=== PATIENT | female | born 1945 | race Caucasian/White ===

== ENCOUNTER → 2016-03-13 | Outpatient (CLI) | payer OTHER ==
--- NOTE | 2016-03-13 17:33 | US ---
Bilateral Duplex Carotid Sonography Clinical Indications: 70-year-old female who had a 20 minute episode of slurred speech and ataxia in early January. Rule out hemodynamically significant stenosis. ICD 10 Diagnostic Code: G45.9. Technique: The cervical portions of the carotid and vertebral arteries were imaged and interrogated by color and pulsed Doppler. Spectral analysis was performed. Cine clips are stored on PACS. COMPARISON STUDY: None. Findings: Right Carotid Artery: The common carotid artery, bifurcation, and the origin of the internal and ext ernal carotid artery are well-imaged. Doppler velocity estimates and color Doppler spectra are ronnell l, with no sonographic evidence of a flow-limiting stenosis. Minimal plaque is seen in the posterior carotid bulb. The peak systolic velocity in the right internal carotid artery is 89 cm/s, with a peak diastolic velocity of 33 cm/s. The ICA to CCA systolic and diastolic ratios are normal. Left Carotid Artery: The common carotid artery, bifurcation, and origin of the internal and external carotid artery are well-imaged. Minimal plaque is seen in the posterior carotid bulb. Doppler veloc ity estimates and color Doppler spectra are normal, with no sonographic evidence of a flow-limiting s tenosis. The peak systolic velocity in the left internal carotid artery is 78 cm/s, with a peak diast olic velocity of 27 cm/s. Vertebral Arteries: Antegrade flow is shown by pulsed Doppler of each vertebral artery. The peak sys tolic velocity in the right vertebral artery is 41 cm/s, with a peak diastolic velocity of 49 cm/s. Impression: 1. Minimal atherosclerotic features; however, there is is no sonographic evidence of a flow-limiting carotid stenosis. 2. Patent, antegrade vertebral arteries. Measurement of carotid stenosis is based on velocity parameters that correlate the residual internal carotid diameter with [place] Symptomatic Carotid Endarterectomy Trial (NASCET) based stenosis levels.
== END ==
LOC: FIMAGING 10:26
PROVIDERS: ATTEND Internal Medicine
DX: G45.9 Transient cerebral ischemic attack, unspecified (principal)

== ENCOUNTER 2016-05-07 16:13 | Inpatient (IN) | payer OTHER ==
--- NOTE | 2016-05-07 16:57 | EDPHY ---
H & P Time Seen by Provider: 05/07/16 16:41 HPI/ROS: Chief complaint. Chest pain HPI. 70-year-old female with 10 day history of gradually worsening shortness of breath. Recent travel to [facility] and when she got there she was walking on the beach just fine and then on the return she could walk up the airplane ramp and had use a wheelchair because of shortness of breath. She has heaviness in her chest without radiation. Bloating abdomen, puffy eyes. Her symptoms are not similar to her previous GA. 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 She is scheduled for an angiogram tomorrow. No fever, cough, unusual leg pain or swelling ROS Constitutional. no fever/chills, no weakness Eyes. no problems with vision ENT. no sore throat, no nasal drainage Cardiovascular. Chest pressure Respiratory. Exertional shortness of breath Abdominal. no abdominal pain, no nausea/vomiting, no diarrhea . no problems urinating MS. no calf pain/swelling, no neck/back pain, no joint pain Skin. no rash Lymph. no swollen glands Neuro. no headache, no dizziness, no difficulty walking or with speech Past Medical/Surgical History: Past medical history coronary artery disease and GA with stents, shortness of breath, back pain, TBI, dyslipidemia, L5-S1 laminectomy Social History: , nonsmoker, no alcohol Smoking Status: Former smoker Physical Exam: General Appearance: Alert well-developed female moderate distress vital signs are stable. Oxygen saturation 94% on room air Eyes: Pupils equal and round no pallor or injection. ENT, Mouth: Mucous membranes are moist. Respiratory: There are no retractions, lungs are clear to auscultation. Cardiovascular: Regular rate and rhythm. Gastrointestinal: Abdomen is soft and nontender, no masses, bowel sounds normal. Neurological: Awake and alert, sensory and motor exams grossly normal. Skin: Warm and dry, no rashes. Musculoskeletal: Neck is supple nontender. Extremities symmetrical, full range of motion. Psychiatric: Patient is oriented X 3, there is no agitation. Constitutional: Initial Vital Signs Temperature (C) 36.5 C 05/07/16 16:33 Heart Rate 69 05/07/16 16:33 Respiratory Rate 20 05/07/16 16:33 Blood Pressure 144/103 H 05/07/16 16:33 O2 Sat (%) 96 05/07/16 16:33 O2 Delivery Mode Room Air O2 (L/minute) 2 Allergies/Adverse Reactions: No Known Allergies Allergy (Verified 05/07/16 16:31) Home Medications: Medication Instructions Recorded Herbals/Supplements -Info Only 1 tab PO DAILY 09/03/12 LORazepam [Ativan (*)] 0.5 mg PO HS 09/03/12 PARoxetine HCL [Paxil 10mg (*)] 30 mg PO DAILY 09/03/12 Progesterone,Micronized 200 mg PO HS 09/03/12 [Progesterone] fentaNYL [Duragesic 75 MCG Patch 75 mcg TD Q48H 09/03/12 (*)] lamOTRIGine [Lamotrigine] 150 mg PO DAILY06 09/03/12 lamoTRIgine [LamICTAL 100 MG (*)] 100 mg PO DAILY18 09/03/12 DULoxetine [Cymbalta 30 MG (*)] 90 mg PO DAILY 10/11/15 Acetaminophen [Tylenol 325mg (*)] 650 mg PO Q4 PRN #0 tab 10/12/15 Clopidogrel Bisulfate [Plavix (*)] 75 mg PO DAILY #30 tab 10/12/15 Nitroglycerin [Nitrostat 0.4 mg 0.4 mg SL Q5M PRN #1 btl 10/12/15 (*)] Aspirin EC [Aspirin EC 81 mg (*)] 81 mg PO DAILY 05/07/16 Bupropion HCl [Bupropion HCl Sr] 150 mg PO DAILY 05/07/16 Dextroamphetamine Sulfate 10 mg PO DAILY 05/07/16 [Dextroamphetamine Sulfate ER] Levothyroxine Sodium [Synthroid] 88 mcg PO DAILY 05/07/16 MELOXICAM [Mobic] 15 mg PO DAILY PRN 05/07/16 Metoprolol Tartrate [Lopressor 25 25 mg PO BID 05/07/16 mg (*)] Oxybutynin Chloride [Oxybutynin 5 mg PO BID PRN 05/07/16 Chloride] Medical Decision Making - Diagnostics EKG Interpretation: EKG interpreted by me shows normal sinus rhythm with normal interval and axis. QRS is normal there is no significant ST elevation or depression, no arrhythmia. Rate 57 Imaging: Chest CT reviewed by me and then discussed with Dr. Ramos shows no evidence for pulmonary embolus. Bilateral pleural effusions an enlarged heart Procedures: IV normal saline, O2, monitor ED Course/Re-evaluation: Re-evaluation at 6:45 p.m.. Patient, her and I discussed imaging lab and EKG results. We discussed treatment plan and recommendation for admission especially as the patient is quite symptomatic at home and is scheduled for heart catheterization tomorrow morning I consulted and discussed the case with Dr. Eli, hospitalist who agrees to the admission I also consulted and discussed the case with , cardiology, who will convey the information of the patient's admission to Dr. Adkins Differential Diagnosis: Patient has had recent travel and shortness of breath since then. The concern was for pulmonary embolus or pneumonia. It appears that she has probable ischemic heart disease with congestive heart failure. Plan is admission and heart catheterization tomorrow - Data Points Laboratory Results: Laboratory Results 05/07/16 16:50 05/07/16 16:50 05/07/16 05/07/16 05/07/16 16:50 16:50 16:50 WBC 5.99 10^3/uL 10^3/uL (3.80-9.50) RBC 3.51 10^6/uL L 10^6/uL (4.18-5.33) Hgb 11.4 g/dL L g/dL (12.6-16.3) Hct 34.6 % L % (38.0-47.0) MCV 98.6 fL fL (81.5-99.8) MCH 32.5 pg pg (27.9-34.1) MCHC 32.9 g/dL g/dL (32.4-36.7) RDW 14.1 % % (11.5-15.2) Plt Count 326 10^3/uL 10^3/uL (150-400) MPV 9.1 fL fL (8.7-11.7) Neut % (Auto) 52.0 % % (39.3-74.2) Lymph % (Auto) 33.2 % % (15.0-45.0) [place] % (Auto) 10.2 % % (4.5-13.0) Eos % (Auto) 3.7 % % (0.6-7.6) Baso % (Auto) 0.7 % % (0.3-1.7) Nucleat RBC Rel Count 0.0 % % (0.0-0.2) Absolute Neuts (auto) 3.12 10^3/uL 10^3/uL (1.70-6.50) Absolute Lymphs (auto) 1.99 10^3/uL 10^3/uL (1.00-3.00) Absolute Monos (auto) 0.61 10^3/uL 10^3/uL (0.30-0.80) Absolute Eos (auto) 0.22 10^3/uL 10^3/uL (0.03-0.40) Absolute Basos (auto) 0.04 10^3/uL 10^3/uL (0.02-0.10) Absolute Nucleated RBC 0.00 10^3/uL 10^3/uL (0-0.01) Immature Gran % 0.2 % % (0.0-1.1) Immature Gran # 0.01 10^3/uL 10^3/uL (0.00-0.10) PT 14.3 SEC SEC (12.0-15.0) INR 1.12 (0.83-1.16) D-Dimer 0.55 ug/mLFEU H ug/mLFEU (0.00-0.50) Sodium 142 mEq/L mEq/L (134-144) Potassium 4.0 mEq/L mEq/L (3.5-5.2) Chloride 108 mEq/L mEq/L (97-110) Carbon Dioxide 25 mEq/l mEq/l (22-31) Anion Gap 9 mEq/L mEq/L (8-16) BUN 21 mg/dL mg/dL (7-23) Creatinine 1.0 mg/dL mg/dL (0.6-1.0) Estimated GFR 55 Glucose 75 mg/dL mg/dL (70-100) Calcium 9.6 mg/dL mg/dL (8.5-10.4) Troponin I < 0.012 ng/mL ng/mL (0-0.034) NT-Pro-B Natriuret Pep 1790 pg/mL H pg/mL (0-125) Departure - Departure Disposition: [facility] Inpatient Acute Clinical Impression: Dyspnea Qualifiers: Dyspnea type: dyspnea on exertion Qualified Code(s): R06.09 - Other forms of dyspnea Condition: Fair
[2016-05-07 17:14] LABS: % IMMATURE GRANULYOCYTES 0.2 % (0.0-1.1); ABSOLUTE IMMATURE GRANULOCYTES 0.01 10^3/uL (0.00-0.10); ADD DIFF? NO; ADD MORPH? NO; ADD SCAN? NO; ATYPICAL LYMPHOCYTE FLAG 10 (0-99); FRAGMENT RBC FLAG 0 (0-99); HEMATOCRIT 34.6 % (38.0-47.0); HEMOGLOBIN 11.4 g/dL (12.6-16.3); LEFT SHIFT FLG 0 (0-99); LIPEMIA HEMOLYSIS FLAG 80 (0-99); MEAN CELL HEMOGLOBIN 32.5 pg (27.9-34.1); MEAN CELL HEMOGLOBIN CONCENTR. 32.9 g/dL (32.4-36.7); MEAN CELL VOLUME 98.6 fL (81.5-99.8); MEAN PLATELET VOLUME 9.1 fL (8.7-11.7); PLATELET CLUMPS FLAG 10 (0-99); PLATELET COUNT 326 10^3/uL (150-400); RED BLOOD CELL COUNT 3.51 10^6/uL (4.18-5.33); RED CELL DISTRIBUTION WIDTH 14.1 % (11.5-15.2)
[2016-05-07 17:18] LABS: ANION GAP 9 mEq/L (8-16); CALCIUM 9.6 mg/dL (8.5-10.4); CARBON DIOXIDE 25 mEq/l (22-31); CHLORIDE 108 mEq/L (97-110); GLOMERULAR FILTRATION RATE 55; GLUCOSE 75 mg/dL (70-100); SODIUM 142 mEq/L (134-144)
--- NOTE | 2016-05-07 17:21 | CPEKG ---
Heart Rate: 57 RR Interval: 1053 P-R Interval: 164 QRSD Interval: 74 QT Interval: 468 QTC Interval: 456 P [place]: -11 QRS [place]: 46 T Wave [place]: 15 EKG Severity - NORMAL ECG - EKG Impression: SINUS RHYTHM Electronically Signed By: Marck Nelson 08-May-2016 00:02:07
[2016-05-07 17:31] LABS: TROPONIN I < 0.012 ng/mL (0-0.034)
[2016-05-07] MEDS ORDERED: IOPAMIDOL (ISOVUE 370) 100 ML BTL IV ONE (17:40)
[2016-05-07 18:23] LABS: INR 1.12 (0.83-1.16); PROTIME(PATIENT) 14.3 SEC (12.0-15.0)
[2016-05-07] MEDS ORDERED: ACETAMINOPHEN 325 MG TAB PO PRN (21:08)
[2016-05-07] MEDS ORDERED: ONDANSETRON DISINTEGRATING 4 MG TAB PO PRN (21:08)
[2016-05-07] MEDS ORDERED: ONDANSETRON 4 MG/2 ML VIAL IVP PRN (21:08)
[2016-05-07] MEDS ORDERED: NITROGLYCERIN 0.4 MG BTL SL PRN (21:10)
[2016-05-07] MEDS ORDERED: FUROSEMIDE 20 MG/2 ML VIAL IVP ONE (21:12)
[2016-05-07] MEDS ORDERED: METOPROLOL TARTRATE 25 MG TAB PO SCH (21:30)
--- NOTE | 2016-05-07 21:42 | GHP ---
[f rep st] HISTORY AND PHYSICAL DATE OF ADMISSION: 05/07/2016 CHIEF COMPLAINT: Dyspnea, concern for anginal equivalent. HISTORY OF PRESENT ILLNESS: Patient is a 70-year-old female, history of CAD status post 2 stents to the RCA in September 2015, hyperlipidemia, presenting with progressive dyspnea. She recently spent 2-1/2 weeks in the [facility]. She and her flew back today, but she was unable to walk off the plane and wired a wheelchair because she was so short of breath. She noted the shortness of breath started about a month ago, specifically with walking or if she talks a lot. On her vacation she felt fairly well, but as the week went on, she was not able to even walk on the beach due to shortness of breath. She reports heaviness in her chest that has been constant for the past 2 days without radiation, associated nausea, vomiting, or diaphoresis. Denies PND or pillow orthopnea. Reports facial and arm swelling, no lower extremity swelling. She has also been very fatigued over the past month. She denies overt chest pain that she has previously had. REVIEW OF SYSTEMS: I completed a 10-point review of systems, negative except as noted in HPI. PAST MEDICAL HISTORY: 1. CAD, 2 stents to RCA October 2015 . 2. Hyperlipidemia. 3. Depression. 4. TBI after falling down 18 steps. PAST SURGICAL HISTORY: Cardiac stents. SOCIAL HISTORY: Lives in [place] with her . No illicit's. Quit smoking 30 years ago. No alcohol. FAMILY HISTORY: Father with an MT at age 69 and 86. Mother with angina and esophageal cancer. ALLERGIES: No known drug allergies. MEDICATIONS: 1. Lamictal . 2. Fentanyl patch. 3. Progesterone. 4. Paroxetine 10 mg daily. 5. Nitroglycerin p.r.n. 6. Metoprolol 12.5 mg twice daily. 7. Synthroid 75 mcg daily. 8. Lorazepam q.h.s. 9. Adderall 5-10 mg daily. 10. Cymbalta 90 mg daily. 11. Plavix daily. 12. Aspirin 325 daily. 13. Tylenol p.r.n. PHYSICAL EXAM: VITAL SIGNS: Temperature 36.7, blood pressure 134/69, heart rate 50s, 60, respirations 20, 93% on room air. GENERAL: Patient is tearful in exam room due to being hospitalized. HEENT: PERRLA. Oropharynx clear. CV : Bradycardic regular rhythm. LUNGS: Decreased breath sounds at bilateral bases. ABDOMEN: Mildly distended, nontender, positive bowel sounds. : No CVA or suprapubic tenderness. MUSCULOSKELETAL: Moving all 4 extremities. NEURO: II through XII intact. PSYCH: Alert and oriented x3, tearful, appears mildly depressed. LABORATORY DATA: WBC 5.9, hemoglobin 11, hematocrit 34, platelets 326. D- dimer is 0.5. INR is 1.2. PT is 14. Sodium 142, potassium chloride 108, carbon dioxide 25, BUN 21, creatinine 1 (baseline 0.8), glucose 9.6, troponin less than 0.012. BNP is 1790. EKG personally reviewed by me, bradycardic, normal sinus rhythm. CTA negative for pulmonary embolism. Bilateral pleural effusions. ASSESSMENT AND PLAN: 1. Dyspnea: The patient was sent over from Dr. Arias office with concern of pulmonary embolism. She underwent CTA that was negative for clot, but it did show bilateral pleural effusions. Patient is with known coronary disease, so coronary ischemic cardiomyopathy. Check a TTE. Mild diuresis. Plan for a cardiac catheterization in the morning. 2. Coronary artery disease status post 2 stents to right carotid artery. Continue aspirin, statin, beta-pérez, and Plavix. 3. Hyperlipidemia. Continue statin. 4. Depression. Continue home medications. DIET: N.p.o. after midnight for procedure. DISPOSITION: Patient warrants admission to the PCU for telemetry. Plan for cardiac catheterization in the morning. /[id number]/MODL MTDD
[2016-05-07] MEDS ORDERED: OXYBUTYNIN CHLORIDE 5 MG TAB PO PRN (23:02)
[2016-05-07] MEDS ORDERED: lamoTRIgine 100 MG TAB PO SCH (23:30)
[2016-05-08] MEDS: LEVOTHYROXINE 88 MCG TAB PO SCH (07:14)
[2016-05-08] MEDS: lamoTRIgine 100 MG TAB PO SCH (07:18)
[2016-05-08] MEDS: METOPROLOL TARTRATE 25 MG TAB PO SCH ×2 (08:20→21:19)
[2016-05-08] MEDS: DULoxetine 30 MG CAP PO SCH (08:20)
[2016-05-08] MEDS: buPROPion SR 150 MG TAB PO SCH (08:21)
[2016-05-08] MEDS ORDERED: fentaNYL 75 MCG PATCH TD SCH (09:00)
[2016-05-08] MEDS ORDERED: FAMOTIDINE 20 MG TAB PO ONE (09:37)
[2016-05-08] MEDS ORDERED: diphenhydrAMINE 25 MG CAP PO ONE (09:37)
[2016-05-08] MEDS ORDERED: DIAZEPAM 5 MG TAB PO ONE (09:37)
[2016-05-08] MEDS ORDERED: NS 1,000 ML IV ONE (09:37)
[2016-05-08] MEDS ORDERED: ASPIRIN EC 325 MG TAB PO ONE (09:37)
[2016-05-08] MEDS: CLOPIDOGREL BISULFATE 75 MG TAB PO SCH (09:52)
[2016-05-08] MEDS: ASPIRIN EC 81 MG TAB PO SCH (09:56)
[2016-05-08] MEDS ORDERED: MIDAZOLAM 2 MG/2 ML VIAL ONE ×2 (12:17→12:28)
[2016-05-08] MEDS ORDERED: HEPARIN 10,000 UNIT/10 ML MDV ONE (12:28)
[2016-05-08] MEDS ORDERED: VERAPAMIL 5 MG/2 ML VIAL ONE (12:28)
[2016-05-08] MEDS ORDERED: LIDOCAINE 1% 30 ML SDV ONE (12:28)
[2016-05-08] MEDS ORDERED: fentaNYL 100 MCG/2 ML INJ ONE (12:28)
[2016-05-08] MEDS ORDERED: IOPAMIDOL (ISOVUE 370) 100 ML BTL IV ONE (12:29)
--- NOTE | 2016-05-08 13:23 | ECHO ---
[id number] + + [address] : : [place] [address] : : [phone] + + Adult Echocardiographic Report + + :Name: ANA CRISTINA HEATON JStudy Date: 05/08/2016 11:36 AM : : Hospital Admission Number: [id number] Loc ation: 220: :: 1945 Gender: Female Height: 67 in : :Age: 70 yrs Race: WH Weight: 189 lb : :Reason For Study: Eval LV Fx : : BSA: 2.0 me ters2 : :History: Pre Cath : + + MMode/2D Measurements \T\ Calculations IVSd: 0.84 cm LVIDd: 4.3 cm FS: 49.1 % Ao root diam: 2.7 cm LVPWd: 0.92 cm LVIDs: 2.2 cm EDV(Teich): 84.1 ml ACS: 1.9 cm ESV(Teich): 16.2 ml EF(Teich): 80.7 % Normal Measurement Values: + + :LVIDd (3.5-5.7cm) IVSd (0.6-1.1cm) LVPWd (0.6-1.1cm) Aortic Root (2.0-3.7cm)Left Atrium (1.5-4.0cm): :LV Vol(d) (76-115ml) LV Vol(s) (29-48ml) Ejec Fraction (50-65%)PV Jose Manuel (0.6- 1.2m/s) TV Jose Manuel (0.4-1.0m/s) : :MV E Jose Manuel (0.8-1.0m/s)MV A Jose Manuel (0.3-1.0m/s)LVOT Jose Manuel (0.7-1.2m/s) Asc Ao Jose Manuel ( 0.9-1.8m/s) : + + Doppler Measurements \T\ Calculations MV E max jose manuel: Ao V2 max: AI max jose manuel: LV V1 max: 107.6 cm/sec 85.5 cm/sec 268.8 cm/sec 83.4 cm/sec MV A max jose manuel: Ao max PG: AI max P.9 mmHg LV V1 max P.9 cm/sec 2.9 mmHg AI dec slope: 2.8 mmHg MV E/A: 2.2 119.8 cm/sec2 AI P1/2t: 657.0 msec PA V2 max: TR max jose manuel: 52.9 cm/sec 294.5 cm/sec PA max P.1 mmHg TR max P.7 mmHg RAP systole: 5.0 mmHg RVSP(TR): 39.7 mmHg Left Ventricle The left ventricle is normal in size. There is normal left ventricular wall thickness. The left ventricular ejection fraction is normal. There is Doppler evidence for diastolic dysfunction. Ejection Fraction = 80%. The left ventricular wall motion is normal. Right Ventricle The right ventricle is normal size. Atria The left atrial size is normal. Right atrial size is normal. Mitral Valve There is mild focal calcification on the posterior mitral valve leaflet. There is no mitral valve stenosis. There is trace to mild mitral regurgitation. Tricuspid Valve There is mild tricuspid regurgitation. Right ventricular systolic pressure is 40mmHg. There is Doppler evidence for mild pulmonary hypertension. Aortic Valve The aortic valve is trileaflet. The aortic valve opens well. There is no aortic stenosis. Trace aortic regurgitation. Pulmonic Valve The pulmonic valve is normal in structure and function. There is no pulmonic valvular regurgitation. Great Vessels The aortic root is normal size. Pericardium/Pleural There is no pericardial effusion. Conclusion A complete two-dimensional transthoracic echocardiogram was performed (2D, M-mode, Doppler and color flow Doppler). The left ventricular ejection fraction is normal. There is Doppler evidence for diastolic dysfunction. Ejection Fraction = 80%. The left ventricular wall motion is normal. The left atrial size is normal. There is mild focal calcification on the posterior mitral valve leaflet. There is trace to mild mitral regurgitation. There is mild tricuspid regurgitation. Right ventricular systolic pressure is 40mmHg. There is Doppler evidence for mild pulmonary hypertension. The aortic valve is trileaflet. Trace aortic regurgitation. There is no pericardial effusion. Final Reading Physician: Oumar Cavazos signed on 05/08/2016 01:23 PM Ordering Physician: Rubén Adkins Performed By: Keshawn Broderick, CS
[2016-05-08] MEDS ORDERED: NITROGLYCERIN 1,500 MCG/15 ML VIAL MISC ONE (13:29)
[2016-05-08] MEDS ORDERED: ALTEPLASE 2 MG VIAL IVP PRN (14:02)
--- NOTE | 2016-05-08 14:07 | PDDXCAT ---
Diagnostic Cath Note - . Date: 05/08/16 Closure method: TR Band Intervention: None *Procedure Indication: Progressive dyspnea at rest (NYHA IV symptoms), anginal equivalent CCS IV angina, known coronary artery disease s/p drug eluting stent implantation x 2 to a 90% RCA lesion in September of 2014. Access: right radial artery (a plethysmography trace-assisted Trevon's test was used to document dual artery supply to the hand and index finger prior to access ). Procedure: 1. selective coronary angiography 2. left heart catheterization *Materials Coronary Angiography size: 5F Coronary Angiography materials: JL3.5, JR4.0, pigtail *Findings-Selective coronary angiography LM: The left main is 5 mm in size and trifurcates into LAD, ramus and circumflex system. There is no significant or flow-limiting disease identified. LAD: The LAD is 2.75 mm in size. There is an ostial diagonal lesion with maximal luminal stenosis of ~50% with TUTU III flow throughout. LCX: The LCx is codominant and ~3.5 mm in size. There is no evidence of flow- limiting disease in this vessel with TUTU III flow throughout. RCA: The right coronary artery is codominant and ~2.5 mm in size. It arises anteriorly an anomalously above the right coronary cusp. Previous stenting in the proximal and mid RCA is widely patent without evidence of in-stent restenosis and TUTU III flow throughout. Ramus: 2.5 mm in size. No evidence of flow-limiting disease. TUTU III flow throughout. *Findings-Left Heart Catheterization LVEDP: 27 mmHg *Summary Complications: None Estimated blood loss: <50ml Closure method: TR band arteriotomy repair Assessment: 1. Non-flow limiting, hoh vessel coronary artery disease. Previous stenting in the proximal and mid right coronary artery are widely patent without in- stent restenosis. This study is unchanged compared to a prior study dated 2015. 2. Elevated EDP at 27 mmHg. 3. An LV gram was not performed as the LV function is known to be normal on the basis of the echocardiogram. We are concerned about Nevaeh's shortness of breath and wheezing as well as the change in her voice that are not explained on the basis of this test. I would like these issues followed up with a pulmonology and ENT consultation. Patient Problems: Problems Problem Status Onset Dyspnea Acute
[2016-05-08] MEDS ORDERED: HYDROCODONE/APAP 5/325 TAB PO PRN (14:48)
[2016-05-08] MEDS ORDERED: LORazepam 1 MG TAB PO ONE (15:00)
[2016-05-08] MEDS ORDERED: FUROSEMIDE 40 MG/4 ML VIAL IVP ONE (16:50)
--- NOTE | 2016-05-08 16:54 | HOSPPROG ---
Hospitalist Progress Note Assessment/Plan: * progressive dyspnea on exertion * uncertain cause * does have bilateral pleural effusions and diastolic dysfunction * did feel better with Lasix yesterday - will repeat dose today * if continues to improve with diuresis would probably hold off on thoracentesis * will probably get pulmonology to see * new hoarseness * will check TSH * consider ENT consult probably can be done outpatient * tooth infection * start amoxicillin * history of coronary artery disease * cath is negative Subjective: feels a little bit better since Lasix given yesterday. Says she has got a infected tooth that is been swelling and hurting more and is requesting antibiotic Objective: Vital Signs Temp Pulse Resp BP Pulse Ox 36.7 C 55 L 16 125/66 H 94 05/08/16 08:00 05/08/16 08:00 05/08/16 08:00 05/08/16 08:00 05/08/16 08:00 PT 14.3 SEC (12.0-15.0) 05/07/16 16:50 INR 1.12 (0.83-1.16) 05/07/16 16:50 discussed the case with Cardiology CT scan personally reviewed interpreted - Physical Exam Constitutional: no apparent distress, appears nourished, not in pain Eyes: anicteric sclera, EOMI Ears, Nose, Mouth, Throat: moist mucous membranes, hearing normal, ears appear normal Cardiovascular: regular rate and rhythym, no murmur, rub, or gallop, No edema Respiratory: no respiratory distress, no rales or rhonchi, clear to auscultation , No reduced air movement ( good air movement), No expiratory wheeze Gastrointestinal: normoactive bowel sounds, soft, non-tender abdomen, no palpable masses Skin: warm Neurologic: AAOx3 Psychiatric: interacting appropriately, not anxious, not encephalopathic, thought process linear ICD10 Worksheet Patient Problems: Problems Problem Status Onset Dyspnea Acute
[2016-05-08] MEDS ORDERED: lamoTRIgine 100 MG TAB PO SCH (18:00)
--- NOTE | 2016-05-08 18:30 | GCON ---
[f rep st] CONSULTATION CHIEF COMPLAINT: Dyspnea. HISTORY OF PRESENT ILLNESS: The patient is a 70-year-old female with a history of CAD, status post 2 stents in September of 2015 with some progressive dyspnea. She just flew back yesterday and was unable to walk from out of the airport because she was so short of breath. We were consulted to evaluate her airway. She states that she is not having any difficulty breathing from the level of her throat. What she describes is when she lies down at night time a feeling of mucus that almost chokes her. Thsi has been ongoing x years. She also feels like her voice has gone slightly deeper. She has a small lesion on her antihelical fold that has been present for 5 weeks that she also wanted to have looked at. The patient has no problems with reflux. No postnasal drip or nasal issues. Ears are otherwise healthy. PAST MEDICAL HISTORY: CAD, hyperlipidemia, depression, and TBI after falling down 18 steps. PAST SURGICAL HISTORY: Cardiac stents. SOCIAL HISTORY: Quit smoking 30 years ago. No alcohol. FAMILY HISTORY: Noncontributory. ALLERGIES: No known drug allergies. PHYSICAL EXAMINATION: GENERAL: The patient is alert and oriented, in no acute distress, sitting upright in bed. HEAD: Atraumatic, normocephalic. EARS: On her left antihelical fold, she has a 5 mm x 3 mm flaky lesion suspicious for a neoplasm. NOSE: Clear. Dry mucosa. ORAL CAVITY/OROPHARYNX: Clear. NECK: Supple. A fiberoptic scope was performed. Nose is clear bilaterally. Nasopharynx is negative. Larynx with some interarytenoid pachydermia. Vocal cords are mobile. No masses or lesions are present. Adequate airway. ASSESSMENT/PLAN: Patient with a healthy-appearing larynx and no concerns for obstruction. She mainly describes mucus choking her at night time. We discussed possibly a trial of Zantac twice a day for at least 4-6 weeks with a followup afterwards. In terms of her left ear, she does have a small lesion that is suspicious for likely basal cell carcinoma. When she is released from the hospital, she should come into our office for a biopsy. Thank you for allowing us to participate in her care. /[id number]/MODL MTDD
[2016-05-08] MEDS ORDERED: traZODone 50 MG TAB PO SCH (21:00)
[2016-05-08] MEDS ORDERED: LORazepam 0.5 MG TAB PO SCH (21:00)
[2016-05-08] MEDS ORDERED: PROGESTERONE,MICR 100 MG CAP PO SCH (21:00)
[2016-05-09] MEDS: LEVOTHYROXINE 88 MCG TAB PO SCH (05:57)
[2016-05-09] MEDS: lamoTRIgine 100 MG TAB PO SCH (05:57)
[2016-05-09 06:36] LABS: ALANINE AMINOTRANSFERASE 31 IU/L (9-52); ALBUMIN 3.8 g/dL (3.5-5.0); ALKALINE PHOSPHATASE 62 IU/L (38-126); ANION GAP 10 mEq/L (8-16); ASPARTATE AMINOTRANSFERASE 19 IU/L (14-46); BILIRUBIN,TOTAL 0.4 mg/dL (0.1-1.4); CALCIUM 9.5 mg/dL (8.5-10.4); CARBON DIOXIDE 24 mEq/l (22-31); CHLORIDE 106 mEq/L (97-110); CREATININE 0.9 mg/dL (0.6-1.0); GLOMERULAR FILTRATION RATE > 60; GLUCOSE 90 mg/dL (70-100); POTASSIUM 3.5 mEq/L (3.5-5.2); SODIUM 140 mEq/L (134-144); TOTAL PROTEIN 6.6 g/dL (6.3-8.2)
[2016-05-09 07:29] VITALS: O2SAT 99
[2016-05-09] MEDS: DULoxetine 30 MG CAP PO SCH (09:13)
[2016-05-09] MEDS: ASPIRIN EC 81 MG TAB PO SCH (09:13)
[2016-05-09] MEDS: CLOPIDOGREL BISULFATE 75 MG TAB PO SCH (09:14)
[2016-05-09] MEDS: buPROPion SR 150 MG TAB PO SCH (09:14)
[2016-05-09] MEDS: METOPROLOL TARTRATE 25 MG TAB PO SCH (09:14)
[2016-05-09 11:25] VITALS: BP 115/82; PULSE 70; RESP 18
[2016-05-09 11:30] VITALS: TEMP 98.5
[2016-05-09] MEDS ORDERED: ALBUTEROL HFA ANES ONLY 200 PUFFS/8.5 GM MDI IH PRN (13:10)
[2016-05-09] MEDS ORDERED: FLUTICASONE/SALMETER 250/50MCG DISKUS IH SCH (13:15)
[2016-05-09] MEDS ORDERED: ALBUTEROL 60 PUFFS/8 GM MDI IH PRN (13:17)
--- NOTE | 2016-05-09 13:52 | GCON ---
[f rep st] CONSULTATION CHEST CONSULTATION REASON FOR CONSULTATION: Dyspnea. HISTORY OF PRESENT ILLNESS: The patient is an extremely pleasant 70-year-old white female with a ok st medical history of coronary artery disease for which she has undergone stenting x2. She has depr ession, hyperlipidemia, and a traumatic brain injury several years ago. She presents with complaint s of breathlessness. In discussion, the patient states that she was visiting in the [facility] and bec jam quite breathless. This worsened with any form of activity. They flew back to [place], and she c jam to the hospital and was subsequently admitted. She has admitted to [facility]. However, she jordan es any cough or production of sputum. There has been no fever and no night sweats. She feels ciro r on supplemental oxygen. PAST MEDICAL HISTORY: Significant for coronary artery disease, status post stenting x2, hyperlipide lisa, depression, traumatic brain injury. ALLERGIES: No known allergies to medications. SOCIAL HISTORY: Oqh-pygd-bjzv smoking history, quit over 30 years. Of note, she denies any alcohol use. She lives with her and has excellent family support. MEDICATIONS: Include Lamictal, fentanyl patch, progesterone, paroxetine, nitroglycerin, metoprolol, Synthroid, lorazepam, Adderall. PHYSICAL EXAM: VITAL SIGNS: Blood pressure is 115/82, pulse is 70, respirations 18, temperature 36 .9, oxygen saturation 99% on room air. GENERAL: She is a well-developed, well-nourished 70-year-ol d white female who is resting comfortably on supplemental oxygen. HEENT: Eyes: HEIDI. EOMI. Thro at shows no erythema or tonsillar hypertrophy. NECK: Supple. There is no cervical adenopathy. HE ART: Regular rate and rhythm with a 2/6 systolic murmur in the left sternal border without radiatio n. LUNGS: Diminished breath sounds. She has a significant prolongation expiratory phase, but ther e is no wheeze. ABDOMEN: Soft, nontender. Bowel sounds are present. EXTREMITIES: No clubbing, c yanosis, or edema. LABORATORIES: White count is 5.9, hemoglobin 11, hematocrit 34, platelet count is 326. INR 1.12. Sodium 140, potassium 3.5, chloride 106, CO2 24, BUN 20, creatinine 0.9, glucose is 90. Echocardiogram is mostly normal. Ejection fraction is 80%. CT angiogram of the chest shows no evidence of pulmonary embolism. There is some basilar atelectasi s and small bilateral effusions. IMPRESSION: 1. Dyspnea, etiology of which is unclear, though asthma would appear to be most likely. She did no t smoke long enough for this to be chronic obstructive pulmonary disease. Her cardiac function is g ood. 2. Small pleural effusions. 3. History of coronary artery disease. RECOMMENDATIONS: 1. We will start patient on Advair 250/50 one puff b.i.d. We will also start her on ProAir 2 puffs every 6 hours as needed. 2. She will see me in the office in approximately 3 weeks. We will perform complete pulmonary func tion testing at that time. 3. Patient is stable to be discharged home from a pulmonary standpoint. Thank you very much for allowing me to participate in the care of this interesting patient. If ther e is any further information, please do not hesitate to contact me. /[id number]/MODL
--- NOTE | 2016-05-09 15:10 | PDCARPN ---
Cardiology Progress Note Assessment/Plan: Dyspnea On Exertion: Has normal LV systolic function. BNP only mildly to moderately elevated. Does not have hypertension but likely does have a component of diastolic CHF. However, her pleural effusions seem out of proportion to her cardiovascular status. Pulmonary consultation pending regarding her pleural effusions. Coronary Artery Disease: Cardiac catheterization yesterday demonstrated no flow limiting lesions. Has some mild to moderate CAD but no progression compared to her prior catheterization. Recommendations: No thoracentesis is planned, would discharge her on Lasix 40 mg daily. Followup with [facility]; Daniella Jackson NP on May 20 at 10:45 AM. 05/09/16 15:14 Subjective: Continues to have FLETCHER. Reviewed/Discussed With: family Objective: Vital Signs (8 Hrs) Temp Pulse Resp BP Pulse Ox 05/09/16 11:20 36.9 C 70 18 115/82 H 99 05/09/16 07:28 63 14 118/73 99 Intake/Output (24 Hrs) 05/08/16 05/09/16 05/10/16 05:59 05:59 05:59 Intake Total 420 350 Output Total 1500 250 Balance -1080 100 Intake: Oral (ml) 420 350 Output: Urine (ml) 1500 250 Toilet 1500 250 Other: Weight 85.729 kg Intake Quantity npo Yes Sufficient Output Comment Toilet 79 kg Number of Voids Toilet 1 3 Result Diagrams: 05/07/16 16:50 05/09/16 05:50 - Physical Exam Constitutional: no apparent distress Eyes: anicteric sclera Ears, Nose, Mouth, Throat: moist mucous membranes Cardiovascular: regular rate and rhythm, no murmurs, no gallops Respiratory: no crackles, no wheezes (Decreased breath sounds at bases.) Skin: no rashes, no edema Neurologic: AAOx3 Psychiatric: not anxious ICD10 Worksheet Patient Problems: Problems Problem Status Onset Dyspnea Acute
--- NOTE | 2016-05-09 15:42 | SOAPPROG ---
SOAP Progress Note Assessment/Plan: We were asked to videostrobe the pt today even though her scope was normal yesterday. Pulmonary thinks she may asthma. She has complaints of mucous in throat, deniz at night that almost chokes her. Ongoing x years. Videostrobe performed in office by myself and Dr. Gonzalez. exam shows clear mucous posteriorly, larynx healthy, cords mobile, no masses. Plan: Pt with healthy larynx. We discussed her mucous. She will start Atrovent nasal spray and Zantac bid. F/u in 6 weeks to see if improving. She has appt on Thursday with Dr. Wright and will have her ear bx at that time. 05/09/16 15:39 Objective: Vital Signs Temp Pulse Resp BP Pulse Ox 36.9 C 70 18 115/82 H 99 05/09/16 11:20 05/09/16 11:20 05/09/16 11:20 05/09/16 11:20 05/09/16 11:20 Laboratory Results 05/09/16 05:50 05/08/16 05/09/16 05/10/16 05:59 05:59 05:59 Intake Total 420 350 Output Total 1500 250 Balance -1080 100 PT 14.3 SEC (12.0-15.0) 05/07/16 16:50 INR 1.12 (0.83-1.16) 05/07/16 16:50 ICD10 Worksheet Patient Problems: Problems Problem Status Onset Dyspnea Acute
--- NOTE | 2016-05-09 17:18 | GDS ---
[f rep st] DISCHARGE SUMMARY DISCHARGE DIAGNOSES: 1. Dyspnea on exertion, unclear etiology. 2. Bilateral pleural effusions. 3. History of coronary artery disease with currently nonobstructive coronary disease. 4. Hoarseness. 5. Tooth infection. HISTORY: This is a 70-year-old female who presented with increasing dyspnea on exertion. HOSPITAL COURSE: Patient was admitted and Cardiology saw the patient. She underwent angiogram, whi ch did not show any obstructive coronary disease as etiology of her dyspnea. She had a CT scan of h er chest which showed no pulmonary embolism, but did show bilateral pleural effusions and some atele ctasis. She does have diastolic dysfunction on echocardiogram, as well as by heart catheterization. We did start some diuresis, and she has improved somewhat. Pulmonology saw the patient, and placed her on some inhalers in case this may be reactive airway disease. She also saw ENT to look at her v ocal cords for hoarseness which were negative. She is going to be discharged home on a small dose of Lasix, as well as Advair and albuterol, and raffy will follow up with Pulmonology and Cardiology. DISPOSITION: Home. DISCHARGE MEDICATIONS: She is to resume her home medicines. In addition, she was given Zantac per ENT, as well as Advair, albuterol, and Lasix. She also is complaining of tooth infection. She will see a dentist; but we have started her on amoxicillin for that. TIME: Greater than 30 minutes were spent on discharge. /[id number]/MODL
== END 2016-05-09 17:12 | disposition home or self-care (01) | DRG 204 ==
LOC: OBSVTOIN 21:08 → F2W 21:14
PROVIDERS: ADMIT Internal Medicine; ATTEND Internal Medicine
PROC: 4A023N7 Measurement of Cardiac Sampling and Pressure, Left Heart, Percutaneous Approach (ICD-10-PCS; principal; 2016-05-08)
PROC: B2111ZZ Fluoroscopy of Multiple Coronary Arteries using Low Osmolar Contrast (ICD-10-PCS; principal; 2016-05-08)
PROC: 02HV33Z Insertion of Infusion Device into Superior Vena Cava, Percutaneous Approach (ICD-10-PCS; 2016-05-08)
DX: R06.02 Shortness of breath (principal); K04.7 Periapical abscess without sinus; I25.10 Atherosclerotic heart disease of native coronary artery without angina pectoris; Z95.5 Presence of coronary angioplasty implant and graft; E78.5 Hyperlipidemia, unspecified; R49.0 Dysphonia; J90 Pleural effusion, not elsewhere classified; I25.2 Old myocardial infarction; Z87.820 Personal history of traumatic brain injury; Z87.891 Personal history of nicotine dependence
CPT/HCPCS: C1751; J1644; J2250; J3010; Q9967

== ENCOUNTER 2016-05-21 18:28 | Emergency (ER) | payer OTHER ==
[2016-05-21 18:34] VITALS: BP 137/54; PULSE 60; RESP 18; TEMP 98.2; O2SAT 97
== END 2016-05-21 19:06 | disposition left against medical advice (07) ==
DX: Z53.21 Procedure and treatment not carried out due to patient leaving prior to being seen by health care provider (principal)

== ENCOUNTER → 2016-05-22 | Outpatient (CLI) | payer OTHER | LOC: BHFA 13:00 | PROVIDERS: ATTEND Internal Medicine Cardiovascular Disease | DX: I50.33 Acute on chronic diastolic (congestive) heart failure (principal); I25.10 Atherosclerotic heart disease of native coronary artery without angina pectoris; I77.9 Disorder of arteries and arterioles, unspecified; E78.5 Hyperlipidemia, unspecified ==

== ENCOUNTER → 2016-06-17 | Outpatient (CLI) | payer OTHER ==
[~2016-06-17] MED LIST: IOPAMIDOL (ISOVUE-300) 100 ML BTL IV ONE
== END ==
LOC: FIMAGING 12:18
PROVIDERS: ATTEND Internal Medicine
DX: K59.00 Constipation, unspecified (principal); M85.80 Other specified disorders of bone density and structure, unspecified site; R19.00 Intra-abdominal and pelvic swelling, mass and lump, unspecified site; R10.13 Epigastric pain; R11.2 Nausea with vomiting, unspecified; R51 Headache
CPT/HCPCS: 74177; G0463; Q9967

== ENCOUNTER 2016-08-07 14:14 | Emergency (ER) | payer OTHER ==
--- NOTE | 2016-08-07 14:43 | EDPHY ---
H & P Time Seen by Provider: 08/07/16 14:22 HPI/ROS: CHIEF COMPLAINT: Abnormal spasms, difficulty speaking HPI: The patient is a 71-year-old female with a history of chronic abdominal pain and bloating. The patient is seen at the office of her primary care physician, Dr. Ryan Murguia, today for follow-up of her abdominal bloating. While there, she was noted by Dr. Murguia to have uncontrollable total body brief spasms which patient states began approximately 3 hours ago. She was also noted to have some difficulty speaking which patient describes as "difficult to get the words out" similar to some episodes she has experienced secondary to her brain injury. She denies recent fall. She states she was recently started on a long-term nitrate but denies other change in medication.. REVIEW OF SYSTEMS: Aside from elements discussed in the HPI, a comprehensive 10-point review of systems was reviewed and is negative. PMH: Includes brain injury, abdominal bloating, chronic pain. SOCIAL HISTORY: . Social active fist. PHYSICAL EXAM: General:Patient is alert, in no acute distress. ENT:Eyes are normal to inspection. ENT inspection normal. Neck: Normal inspection. Full range of motion. Respiratory:No respiratory distress. Breath sounds normal bilaterally. Cardiovascular: Regular rate and rhythm. Strong peripheral pulses. Normal cap refill. Abdomen:The abdomen is nontender to palpation. There are no peritoneal signs. There are normal bowel sounds. Back: Normal to inspection. No tenderness to palpation. Skin: Normal color. No rash. Warm and dry. Extremities: Normal appearance. Full range of motion. Neuro: Oriented x3. Normal motor function. Normal sensory function. The patient is noted to intermittently have a jerking like motion of her entire body , approximately once every 10-20 seconds. Smoking Status: Former smoker Constitutional: Initial Vital Signs Temperature (C) 37 C 08/07/16 14:20 Heart Rate 71 08/07/16 14:20 Respiratory Rate 18 08/07/16 14:20 Blood Pressure 105/63 08/07/16 14:20 O2 Sat (%) 97 08/07/16 14:20 O2 Delivery Mode Room Air Allergies/Adverse Reactions: No Known Allergies Allergy (Verified 08/07/16 14:28) Home Medications: Medication Instructions Recorded Herbals/Supplements -Info Only 1 tab PO DAILY 09/03/12 LORazepam [Ativan (*)] 0.5 mg PO HS 09/03/12 PARoxetine HCL [Paxil 10mg (*)] 30 mg PO DAILY 09/03/12 Progesterone,Micronized 200 mg PO HS 09/03/12 [Progesterone] fentaNYL [Duragesic 75 MCG Patch 75 mcg TD Q48H 09/03/12 (*)] lamoTRIgine [LamICTAL 100 MG (*)] 100 mg PO DAILY18 09/03/12 lamoTRIgine [Lamotrigine] 150 mg PO DAILY06 09/03/12 DULoxetine [Cymbalta 30 MG (*)] 90 mg PO DAILY 10/11/15 Acetaminophen [Tylenol 325mg (*)] 650 mg PO Q4 PRN #0 tab 10/12/15 Clopidogrel Bisulfate [Plavix (*)] 75 mg PO DAILY #30 tab 10/12/15 Nitroglycerin [Nitrostat 0.4 mg 0.4 mg SL Q5M PRN #1 btl 10/12/15 (*)] Aspirin EC [Aspirin EC 81 mg (*)] 81 mg PO DAILY 05/07/16 Bupropion HCl [Bupropion HCl Sr] 150 mg PO DAILY 05/07/16 Dextroamphetamine Sulfate 10 mg PO DAILY 05/07/16 [Dextroamphetamine Sulfate ER] Levothyroxine Sodium [Synthroid] 88 mcg PO DAILY 05/07/16 MELOXICAM [Mobic] 15 mg PO DAILY PRN 05/07/16 Metoprolol Tartrate [Lopressor 25 25 mg PO BID 05/07/16 mg (*)] Oxybutynin Chloride 5 mg PO BID PRN 05/07/16 Albuterol [Proventil Inhaler HFA 2 puffs IH Q6HRS PRN #1 mdi 05/09/16 (*)] Amoxicillin Trihydrate [Amoxil] 500 mg PO Q8HRS #21 cap 05/09/16 Fluticasone/Salmeter 250/50Mcg 1 puffs IH BID #1 disk 05/09/16 [Advair 250/50 (*)] Furosemide [Lasix 20 MG (*)] 20 mg PO DAILY #30 tab 05/09/16 Ranitidine HCl [Zantac] 150 mg PO BID #60 tablet 05/09/16 Diazepam [Valium 5 MG (*)] 5 mg PO TID PRN #15 tab 08/07/16 MDM/Departure - MDM Diagnostics: From Dr. Murguia's office today: Laboratory Tests 08/07/16 14:45 Sodium 138 Potassium 4.9 Chloride 102 Carbon Dioxide 23 BUN 28 H Creatinine 1.0 Glucose 97 Calcium 9.6 Magnesium 2.0 Imaging Results: Imaging Impressions Head CT 08/07/16 15:22 Impression: Negative. No acute intracranial hemorrhage, mass, or evidence of ischemia. Findings discussed with Emergency Department physician, Buddy Brock MD on 08/07/2016,1601 hours. Imaging: Discussed imaging studies w/ callisthenics instructor Radiologist, I viewed and interpreted images myself Medications Given: Discontinued Medications Diazepam (Valium) 5 mg PO EDNOW ONE Stop: 08/07/16 16:15 Last Admin: 08/07/16 16:20 Dose: 5 mg ED Course/Re-evaluation: The patient was treated with 5 mg of oral Valium. On re-evaluation at 5:30 p.m. , the patient is completely asymptomatic. She states that her spasms have stopped, she has no difficulty speaking and denies any other neurologic abnormality. She would like to go home. I will give her short prescription for Valium and have her follow up with Dr. Murguia for further workup. I see no evidence of hemorrhagic stroke, ischemic stroke, epilepsy, sepsis or TIA. - Depart Disposition: Home, Routine, Self-Care Clinical Impression: Abnormal involuntary movement Condition: Good Instructions: Additional Information Additional Instructions: Follow-up with Dr. Murguia tomorrow for plan of care. Return to the emergency department for confusion, difficulty speaking or return of spasms. Use Valium as needed to control spasms. Prescriptions: Diazepam [Valium 5 MG (*)] 5 mg PO TID PRN #15 tab PRN Reason: Spasms Referrals: Ryan Murguia MD [Primary Care Provider] - As per Instructions
--- NOTE | 2016-08-07 14:44 | CPEKG ---
Heart Rate: 71 RR Interval: 845 P-R Interval: 176 QRSD Interval: 72 QT Interval: 400 QTC Interval: 435 P Inman: 10 QRS Inman: 18 T Wave Inman: 5 EKG Severity - NORMAL ECG - EKG Impression: SINUS RHYTHM Electronically Signed By: Tang Joseph 08-Aug-2016 16:54:54
[2016-08-07] MEDS ORDERED: DIAZEPAM 5 MG TAB PO ONE (16:14)
[2016-08-07 17:08] VITALS: RESP 16
[2016-08-07 18:14] VITALS: TEMP 97.9
[2016-08-07 18:26] VITALS: BP 109/69; PULSE 63; O2SAT 95
== END 2016-08-07 18:26 | disposition home or self-care (01) ==
DX: R25.9 Unspecified abnormal involuntary movements (principal); Z79.82 Long term (current) use of aspirin; Z87.891 Personal history of nicotine dependence

== ENCOUNTER → 2016-08-14 | Outpatient (CLI) | payer OTHER ==
[~2016-08-14] MED LIST changes: +BUPIVACAINE 0.5% 30 ML SDV ONE; -IOPAMIDOL (ISOVUE-300) 100 ML BTL IV ONE; +IOPAMIDOL (ISOVUE-300) 100 ML BTL ONE
== END ==
LOC: FIMAGING 09:50
PROVIDERS: ATTEND Internal Medicine
DX: R14.0 Abdominal distension (gaseous) (principal); R60.0 Localized edema; K42.9 Umbilical hernia without obstruction or gangrene
CPT/HCPCS: 74177; Q9967

== ENCOUNTER 2016-08-15 14:45 | Inpatient (IN) | payer OTHER ==
--- NOTE | 2016-08-15 15:32 | GHP ---
[f rep st] PREOP HISTORY AND PHYSICAL DATE OF ADMISSION: 08/15/2016 PREOPERATIVE DIAGNOSIS: Umbilical hernia with partial small bowel obstruction. HISTORY OF PRESENT ILLNESS: Nevaeh Rhodes is a pleasant 71-year-old woman who presented to the clinic this afternoon complaining of 3 months of nausea, distention and cramping. The symptoms will resolve and then get worse. Her symptoms never completely go away. Over the past several days, pradip akbar has had increased distention, pain, nausea with vomiting. In addition, she developed diarrhea yes terday. She had a CT yesterday, which showed mild distention of the jejunum and proximal ileum with out a transition point. She also has a periumbilical hernia, which was reducible, fat containing on CT. Today, she is more tender around the hernia. She had a history of a small bowel obstruction 1 5 years ago and underwent laparotomy. She is currently passing flatus. She has only been able to d uring drink chicken broth and water. She has been n.p.o. for 2 days. Also of note, she had an millicent ogram in April and was diagnosed with CHF. PAST MEDICAL HISTORY: Coronary artery disease, CHF, hyperlipidemia, back pain, asthma, pleural effu sissy associated with CHF exacerbation, traumatic brain injury from a fall in 2012. PAST SURGICAL HISTORY: Laparotomy 15 years ago. ALLERGIES: No known drug allergies. FAMILY HISTORY: Mother with throat cancer. Father with cardiovascular disease. SOCIAL HISTORY: She has 1 child. She is retired. She is a former smoker. She denies alcohol or r ecreational drug use. REVIEW OF SYSTEMS: 10-point review of systems negative aside from HPI. PHYSICAL EXAMINATION: GENERAL: Well-developed, well-nourished, woman, uncomfortable, accompanied b y friend. HEENT: Normocephalic, atraumatic. No hearing deficits. Pupils equal and round. No scl eral icterus. Mucous membranes moist. NECK: Trachea midline. RESPIRATORY: Clear to auscultation bilaterally. No increased work of breathing. CARDIOVASCULAR: Regular rate and rhythm. ABDOMEN: Bowel sounds present throughout. Distended, tender throughout but significantly worse around periu mbilical hernia. PSYCH: Mood and affect normal. NEURO: Grossly intact. IMPRESSION AND PLAN: Nevaeh Rhodes is a 71-year-old woman, with a periumbilical hernia and part ial bowel obstruction. It is possible that the hernia is contributing to her current symptoms. She will be taken the operating room for open hernia repair with exploratory laparoscopy with Dr. May . Risks and options were discussed, and she would like to proceed. The patient was seen by Dr. May. /[id number]/MODL
--- NOTE | 2016-08-15 15:55 | PDANEPAE ---
ANE History of Present Illness abd pain x 3 mos ANE Past Medical History - Cardiovascular History Hx Hypertension: No Hx Arrhythmias: No Hx Chest Pain: No Hx Coronary Artery / Peripheral Vascular Disease: Yes Hx CHF / Valvular Disease: Yes Hx Palpitations: No - Pulmonary History Hx COPD: No Hx Asthma/Reactive Airway Disease: No Hx Recent Upper Respiratory Infection: No Hx Oxygen in Use at Home: No - Endocrine History Hx Diabetes: No Hypothyroid: Yes Hyperthyroid: No - Renal History Hx Renal Disorders: No - Liver History Hx Hepatic Disorders: No - Neurological & Psychiatric Hx Hx Neurological and Psychiatric Disorders: Yes - Chronic Pain History Chronic Pain: Yes ANE Review of Systems - Exercise capacity Exercise capacity: >=4 METS - Systems Constitutional: Reports: no symptoms EENMT: Reports: no symptoms Cardiac: Reports: no symptoms Respiratory: Reports: no symptoms Gastrointestinal: Reports: abdominal pain Muscolosketal: Reports: joint pain Neurological: Reports: no symptoms ANE Patient History - Allergies Allergies/Adverse Reactions: No Known Allergies Allergy (Verified 08/07/16 14:28) - Home Medications Home Medications: Herbals/Supplements -Info Only 1 tab PO DAILY 09/03/12 [Last Taken Unknown] LORazepam [Ativan (*)] 0.5 mg PO HS 09/03/12 [Last Taken 10/10/15] PARoxetine HCL [Paxil 10mg (*)] 30 mg PO DAILY 09/03/12 [Last Taken 05/07/16] Progesterone,Micronized [Progesterone] 200 mg PO HS 09/03/12 [Last Taken ] fentaNYL [Duragesic 75 MCG Patch (*)] 75 mcg TD Q48H 09/03/12 [Last Taken ] lamoTRIgine [LamICTAL 100 MG (*)] 100 mg PO DAILY18 09/03/12 [Last Taken ] lamoTRIgine [Lamotrigine] 150 mg PO DAILY06 09/03/12 [Last Taken 05/07/16] DULoxetine [Cymbalta 30 MG (*)] 90 mg PO DAILY 10/11/15 [Last Taken 10/11/15] Aspirin EC [Aspirin EC 81 mg (*)] 81 mg PO DAILY 05/07/16 [Last Taken Unknown] Bupropion HCl [Bupropion HCl Sr] 150 mg PO DAILY 05/07/16 [Last Taken 05/07/16] Dextroamphetamine Sulfate [Dextroamphetamine Sulfate ER] 10 mg PO DAILY [Last Taken 05/07/16] Levothyroxine Sodium [Synthroid] 88 mcg PO DAILY 05/07/16 [Last Taken 05/07/16] MELOXICAM [Mobic] 15 mg PO DAILY PRN 05/07/16 [Last Taken Unknown] Metoprolol Tartrate [Lopressor 25 mg (*)] 25 mg PO BID 05/07/16 [Last Taken ] Oxybutynin Chloride 5 mg PO BID PRN 05/07/16 [Last Taken Unknown] - Smoking Hx Smoking Status: Former smoker ANE Physical Exam - Airway Mallampati Score: Class 1 - Pulmonary Pulmonary: no respiratory distress - Cardiovascular Cardiovascular: regular rate and rhythym - ASA Status ASA Status: III ANE Anesthesia Plan Anesthesia Plan: general endotracheal anesthesia
[2016-08-15] MEDS ORDERED: MIDAZOLAM 2 MG/2 ML VIAL IVP ONE (15:58)
--- NOTE | 2016-08-15 16:00 | PDGENHP ---
History & Physical Chief Complaint: CRAMPY ABD PAIN History of Present Illness: 3 MONTHS OF PAIN OFF ANDON WITH WEIGHT LOSS. RECENT CT SUGGESTS SBO/ ALSO INCISIONAL HERNIA WITH EDEMA BUT NO BOWELL. ADMIT FOR LAP AND HERNIA REPAIR. RISKS AND OPTIONS FULLY DISCUSSED Pertinent Past, Social, Family History: CARDIAC STENTS BUT CLEAR ANGIO IN APRIL. SBO WITH SURGICAL LYSIS 12 YEARS AGO. NKA. MEDS SEE LIST Relevant Physical Exam: HEENT NONICTERIC. CHEST CLEAR. CARDIAC RR WO M. ABD SOFT, DISTENDED WITH TENDER INCISIONAL HERNIA. EXTREM FULL PULSES Cardiorespiratory Assessment: READY FOR SURGERY. PLAN LAPAROTOMY AND REPAIR INCISIONAL HERNIA
[2016-08-15] MEDS ORDERED: ceFAZolin 2 GM/DEXTROSE 100 ML IV ONE (16:04)
[2016-08-15] MEDS ORDERED: LR 1,000 ML IV ONE (16:04)
[2016-08-15] MEDS ORDERED: ROCURONIUM 50 MG/5 ML VIAL ONE ×2 (16:14→17:48)
[2016-08-15] MEDS ORDERED: PROPOFOL 200 MG/20 ML VIAL ONE (16:14)
[2016-08-15] MEDS ORDERED: LIDOCAINE 2% 5 ML SDV ONE (16:14)
[2016-08-15] MEDS ORDERED: fentaNYL 100 MCG/2 ML INJ ONE ×4 (16:14→18:47)
[2016-08-15] MEDS ORDERED: LIDOCAINE 1% 2 ML INJ ID PRN (16:15)
[2016-08-15] MEDS ORDERED: CEFAZOLIN 2 GM/DEXTROSE/100 ML BAG IV ONE (16:23)
[2016-08-15] MEDS ORDERED: PHENYLEPHRINE HCL 100 MCG/ML SYR ONE (16:46)
[2016-08-15] MEDS ORDERED: HYDROmorphONE/DILAUDID 2 MG/ML INJ ONE (17:07)
[2016-08-15] MEDS ORDERED: THROMBIN (BOVINE) 20,000 UNIT SPRAY TP ONE (17:13)
[2016-08-15] MEDS ORDERED: NS IV ONE (17:30)
[2016-08-15] MEDS ORDERED: DESMOPRESSIN ACETATE IV ONE (17:30)
[2016-08-15] MEDS ORDERED: SUGAMMADEX SODIUM 200 MG/2 ML VIAL IVP ONE (17:48)
[2016-08-15] MEDS ORDERED: ALBUTEROL 3 ML DEYVIAL IH PRN (18:18)
[2016-08-15] MEDS ORDERED: NALOXONE HCL 0.4 MG/ML INJ IVP PRN ×2 (18:18→18:58)
[2016-08-15] MEDS ORDERED: PROMETHAZINE HCL 25 MG/ML INJ IVP PRN ×2 (18:18→21:03)
[2016-08-15] MEDS ORDERED: ONDANSETRON 4 MG/2 ML VIAL IVP PRN ×2 (18:18→21:04)
[2016-08-15] MEDS: fentaNYL 100 MCG/2 ML INJ IVP PRN ×3 (18:20→18:48)
--- NOTE | 2016-08-15 18:20 | POSTANESTH ---
Post Anesthetic Evaluation Cardiovascular Status: Normal, Stable Respiratory Status: Normal, Stable Level of Consciousness/Mental Status: Can Participate in Eval Pain Control: Adequate, Prn Tx Ordered Nausea/Vomiting Control: Adequate, Prn Tx Ordered Complications Possibly Related to Anesthesia: None Noted
[2016-08-15] MEDS ORDERED: HYDROmorphONE/DILAUDID 1 MG/ML SYR ONE ×2 (18:28→18:47)
[2016-08-15] MEDS: HYDROmorphONE/DILAUDID 1 MG/ML SYR IVP PRN ×4 (18:28→19:22)
[2016-08-15] MEDS ORDERED: ONDANSETRON 4 MG/2 ML VIAL ONE (18:42)
[2016-08-15] MEDS ORDERED: HYDROmorphONE/DILAUDID 6 MG/30 ML PCA IV PRN (18:58)
[2016-08-15] MEDS ORDERED: PROMETHAZINE HCL 25 MG/ML INJ ONE (19:23)
[2016-08-15] MEDS: cefOXitin SODIUM 1 GM in D5W 50 ML IV SCH (20:34)
[2016-08-15] MEDS: D5W 1/2 NS W/ 20 KCl/L 1,000 ML IV SCH (20:35)
[2016-08-15] MEDS: METOCLOPRAMIDE 10 MG/2 ML VIAL IVP SCH (23:36)
[2016-08-16] MEDS: METOCLOPRAMIDE 10 MG/2 ML VIAL IVP SCH ×4 (05:13→22:27)
[2016-08-16] MEDS: cefOXitin SODIUM 1 GM in D5W 50 ML IV SCH ×2 (05:14→12:36)
[2016-08-16 05:26] LABS: % IMMATURE GRANULYOCYTES 0.3 % (0.0-1.1); ABSOLUTE IMMATURE GRANULOCYTES 0.03 10^3/uL (0.00-0.10); ADD DIFF? NO; ADD MORPH? NO; ADD SCAN? NO; ATYPICAL LYMPHOCYTE FLAG 0 (0-99); FRAGMENT RBC FLAG 0 (0-99); HEMATOCRIT 29.6 % (38.0-47.0); HEMOGLOBIN 9.7 g/dL (12.6-16.3); LEFT SHIFT FLG 20 (0-99); LIPEMIA HEMOLYSIS FLAG 80 (0-99); MEAN CELL HEMOGLOBIN 31.9 pg (27.9-34.1); MEAN CELL HEMOGLOBIN CONCENTR. 32.8 g/dL (32.4-36.7); MEAN CELL VOLUME 97.4 fL (81.5-99.8); MEAN PLATELET VOLUME 9.1 fL (8.7-11.7); PLATELET CLUMPS FLAG 0 (0-99); PLATELET COUNT 247 10^3/uL (150-400); RED BLOOD CELL COUNT 3.04 10^6/uL (4.18-5.33); RED CELL DISTRIBUTION WIDTH 13.4 % (11.5-15.2)
[2016-08-16 05:51] LABS: ANION GAP 6 mEq/L (8-16); CALCIUM 8.7 mg/dL (8.5-10.4); CARBON DIOXIDE 25 mEq/l (22-31); CHLORIDE 105 mEq/L (97-110); CREATININE 0.8 mg/dL (0.6-1.0); GLOMERULAR FILTRATION RATE > 60; GLUCOSE 153 mg/dL (70-100); POTASSIUM 4.7 mEq/L (3.5-5.2); SODIUM 136 mEq/L (134-144)
[2016-08-16] MEDS ORDERED: NS 1,000 ML IV ONE (06:54)
[2016-08-16] MEDS ORDERED: NON-FORMULARY NEW DRUG (Omeprazole [Omeprazole] 40 MG) PO PRN (09:38)
[2016-08-16] MEDS ORDERED: NON-FORMULARY NEW DRUG (Eszopiclone [Lunesta] 3 MG) PO PRN (09:38)
[2016-08-16] MEDS ORDERED: QUEtiapine FUMARATE 25 MG TAB PO PRN (09:38)
[2016-08-16] MEDS ORDERED: DEXTROAMPHETAMINE SULFATE 10 MG PO PRN (09:38)
[2016-08-16] MEDS ORDERED: PARoxetine HCL 10 MG TAB PO SCH (09:45)
[2016-08-16] MEDS ORDERED: DEXTROAMPHETAMINE 5 MG TAB PO PRN (09:46)
[2016-08-16] MEDS ORDERED: ZOLPIDEM TARTRATE 5 MG TAB PO PRN (09:47)
[2016-08-16] MEDS: DIAZEPAM 5 MG TAB PO PRN (10:10)
[2016-08-16] MEDS: lamoTRIgine 100 MG TAB PO SCH (10:12)
[2016-08-16] MEDS: PANTOPRAZOLE SODIUM 40 MG TAB PO PRN (10:12)
[2016-08-16] MEDS: D5W 1/2 NS W/ 20 KCl/L 1,000 ML IV SCH ×2 (10:14→17:52)
[2016-08-16] MEDS: buPROPion SR 150 MG TAB PO SCH (11:22)
[2016-08-16] MEDS: DULoxetine 30 MG CAP PO SCH (11:23)
[2016-08-16] MEDS: DULoxetine 60 MG CAP PO SCH (11:23)
--- NOTE | 2016-08-16 12:05 | SOAPPROG ---
LINDSAY Progress Note Assessment/Plan: Assessment/Plan: 71-year-old male status post exploratory laparotomy, adhesiolysis for small bowel obstruction Pain is an issue today, patient is not opiate naive and takes a fair amount of narcotics as an outpatient. I have increased her Dilaudid HYDROSTATIC TESTER demand dose which will hopefully help with her pain control. Urine output has been minimal to none, received a bolus this morning, we will continue to monitor and gently hydrate if needed as the patient has underlying CHF. 08/16/16 12:03 Objective: Vital Signs Temp Pulse Resp BP Pulse Ox 36.8 C 73 18 107/64 100 08/16/16 11:40 08/16/16 11:40 08/16/16 11:40 08/16/16 11:40 08/16/16 11:40 Laboratory Results 08/16/16 05:04 08/16/16 05:04 08/15/16 08/16/16 08/17/16 05:59 05:59 05:59 Intake Total 800 Output Total 100 Balance 700 ICD10 Worksheet Patient Problems: Problems Problem Status Onset Dyspnea Acute
[2016-08-16] MEDS: HYDROmorphONE/DILAUDID 6 MG/30 ML PCA IV PRN ×4 (12:55→22:37)
[2016-08-16] MEDS: LORazepam 1 MG TAB PO PRN (22:27)
[2016-08-17] MEDS: D5W 1/2 NS W/ 20 KCl/L 1,000 ML IV SCH ×3 (01:42→19:26)
[2016-08-17] MEDS: METOCLOPRAMIDE 10 MG/2 ML VIAL IVP SCH ×4 (05:10→23:28)
[2016-08-17] MEDS ORDERED: NS 1,000 ML IV ONE (06:41)
--- NOTE | 2016-08-17 08:41 | SOAPPROG ---
SOAP Progress Note Assessment/Plan: Assessment/Plan: 71-year-old male status post exploratory laparotomy, adhesiolysis for small bowel obstruction Pain is much better controlled today, had to reduce her PUPPY SITTER dose overnight for breathing issues. Still having problems with urine output, did urinate this morning albeit concentrated. Given another bolus this morning. Her abdomen is appropriately tender, incision is clean, she has good bowel sounds, will start clear liquids today and advance as tolerated. 08/16/16 12:03 08/17/16 08:41 Objective: Vital Signs Temp Pulse Resp BP Pulse Ox 36.5 C 86 18 130/82 H 98 08/17/16 08:00 08/17/16 08:00 08/17/16 08:00 08/17/16 08:00 08/17/16 08:00 Laboratory Results 08/16/16 05:04 08/16/16 05:04 08/16/16 08/17/16 08/18/16 05:59 05:59 05:59 Intake Total 800 2310 Output Total 100 400 350 Balance 700 1910 -350 ICD10 Worksheet Patient Problems: Problems Problem Status Onset Dyspnea Acute
[2016-08-17] MEDS: HYDROmorphONE/DILAUDID 4 MG TAB PO PRN (08:43)
[2016-08-17] MEDS: lamoTRIgine 100 MG TAB PO SCH (08:47)
[2016-08-17] MEDS: CLOPIDOGREL BISULFATE 75 MG TAB PO SCH (08:47)
[2016-08-17] MEDS: DULoxetine 30 MG CAP PO SCH (08:48)
[2016-08-17] MEDS: DULoxetine 60 MG CAP PO SCH (08:48)
[2016-08-17] MEDS: DIAZEPAM 5 MG TAB PO PRN ×2 (08:53→19:24)
[2016-08-17] MEDS: HYDROmorphONE/DILAUDID 6 MG/30 ML PCA IV PRN (10:10)
[2016-08-17] MEDS: fentaNYL 75 MCG PATCH TD SCH (10:11)
[2016-08-17] MEDS: buPROPion SR 150 MG TAB PO SCH (10:17)
[2016-08-17] MEDS: KETOROLAC 30 MG/1 ML SDV IVP PRN ×2 (11:45→17:23)
[2016-08-17] MEDS: ONDANSETRON DISINTEGRATING 4 MG TAB PO PRN (12:54)
[2016-08-17] MEDS: oxyCODONE IR 5 MG TAB PO PRN ×2 (12:54→23:28)
[2016-08-18] MEDS: D5W 1/2 NS W/ 20 KCl/L 1,000 ML IV SCH ×2 (03:36→12:05)
[2016-08-18] MEDS: oxyCODONE IR 5 MG TAB PO PRN ×4 (04:35→23:02)
[2016-08-18] MEDS: METOCLOPRAMIDE 10 MG/2 ML VIAL IVP SCH ×3 (05:21→18:32)
[2016-08-18] MEDS: KETOROLAC 30 MG/1 ML SDV IVP PRN ×3 (05:21→22:40)
[2016-08-18] MEDS: CLOPIDOGREL BISULFATE 75 MG TAB PO SCH (09:05)
[2016-08-18] MEDS: DULoxetine 30 MG CAP PO SCH (09:06)
[2016-08-18] MEDS: DULoxetine 60 MG CAP PO SCH (09:06)
[2016-08-18] MEDS: buPROPion SR 150 MG TAB PO SCH (09:06)
[2016-08-18] MEDS: PANTOPRAZOLE SODIUM 40 MG TAB PO PRN (09:07)
[2016-08-18] MEDS: lamoTRIgine 100 MG TAB PO SCH (09:07)
--- NOTE | 2016-08-18 09:34 | SOAPPROG ---
SOJENNA Progress Note Assessment/Plan: Assessment/Plan: 71 Y F s/p laparotomy with CHICHI for SBO and repair of ventral hernia. POD#3. Ileus. Tolerating clears. Still no flatus. Continue clears, OOB. Pain. Improved today with Dr. Candelaria's adjustments over the weekend. Continue regimen. Hypothyroid. Wants to restart synthroid. Not on APR, pharmacy to confirm and ok to restart. Dispo: pending. May need SNF--patient lives alone. S: pain is better. no gas. no n/v. only had a small portion of clears yesterday. O: alert, nad no wob, clear anteriorly cor: rrr abd: softly bloated, +BS, inc cdi 08/18/16 09:31 Objective: Vital Signs Temp Pulse Resp BP Pulse Ox 36.5 C 72 14 106/69 94 08/18/16 08:00 08/18/16 08:00 08/18/16 08:00 08/18/16 08:00 08/18/16 08:00 Laboratory Results 08/16/16 05:04 08/16/16 05:04 08/17/16 08/18/16 08/19/16 05:59 05:59 05:59 Intake Total 2310 4033 470 Output Total 400 1300 Balance 1910 8683 470 ICD10 Worksheet Patient Problems: Problems Problem Status Onset Dyspnea Acute
[2016-08-18] MEDS: DIAZEPAM 5 MG TAB PO PRN ×2 (10:05→19:40)
[2016-08-18] MEDS: IPRATROPIUM 0.06% NASAL SPRAY EACHNARE PRN (18:33)
[2016-08-18] MEDS: PROGESTERONE,MICR 100 MG CAP PO SCH (19:39)
[2016-08-18] MEDS: ASPIRIN EC 81 MG TAB PO SCH (19:40)
[2016-08-18] MEDS: HYDROmorphONE/DILAUDID 4 MG TAB PO PRN (21:37)
[2016-08-18] MEDS: LORazepam 1 MG TAB PO PRN (21:37)
[2016-08-18] MEDS ORDERED: HYDROmorphONE/DILAUDID 1 MG/ML SYR IVP PRN (22:40)
--- NOTE | 2016-08-18 23:24 | POSTOPPROG ---
Post Op Note Date of Operation: 08/15/16 Surgeon: Alexys May Anesthesia: GET(General Endotracheal) Pre-op Diagnosis: incarcerated ventral hernia Post-op Diagnosis: same +SBO Indication: PAIN Procedure: LAPAROTOMY , LYSIS OF ADHESIONS FOR SBO + REPAIR INCISIONAL VENTRAL HEERNIA Findings: 5CM VH AND OBSTRUCTED KNOT OF MID-JEJUNAL SMALL BOWELL Inf/Abcess present in the surg proc area at time of surgery?: No Depth: Organ Space EBL: Minimal Complications: 0 Specimen(s): HERNIA SACK
[2016-08-19] MEDS: LEVOTHYROXINE 88 MCG TAB PO SCH (05:50)
[2016-08-19] MEDS: oxyCODONE IR 5 MG TAB PO PRN (05:50)
[2016-08-19] MEDS: DIAZEPAM 5 MG TAB PO PRN (08:14)
[2016-08-19] MEDS: HYDROmorphONE/DILAUDID 4 MG TAB PO PRN ×2 (08:14→13:03)
[2016-08-19] MEDS: buPROPion SR 150 MG TAB PO SCH (10:54)
[2016-08-19] MEDS: lamoTRIgine 100 MG TAB PO SCH (10:54)
[2016-08-19] MEDS: DULoxetine 30 MG CAP PO SCH (10:54)
[2016-08-19] MEDS: DULoxetine 60 MG CAP PO SCH (10:54)
[2016-08-19] MEDS: CLOPIDOGREL BISULFATE 75 MG TAB PO SCH (10:54)
[2016-08-19] MEDS: IPRATROPIUM 0.06% NASAL SPRAY EACHNARE PRN (10:56)
[2016-08-19] MEDS: fentaNYL 75 MCG PATCH TD SCH (11:43)
--- NOTE | 2016-08-19 18:04 | SOAPPROG ---
SOAP Progress Note Assessment/Plan: Assessment/Plan: 71 Y F s/p laparotomy with CHICHI for SBO and repair of ventral hernia. POD#4. Ileus. Tolerating clears. Still no flatus. Continue clears, OOB. Pain. Worse today. Will add applesauce and crackers so we can start PO meds which may provide longer, better relief. D/w'ed RN. Dispo: pending. May need SNF--patient lives alone. S: pain is worse today. no gas. no n/v. O: alert, nad no wob, clear anteriorly cor: rrr abd: softly bloated, +BS, inc cdi 08/19/16 18:03 Objective: Vital Signs Temp Pulse Resp BP Pulse Ox 36.9 C 108 H 18 149/79 H 93 08/19/16 15:39 08/19/16 17:44 08/19/16 17:44 08/19/16 17:44 08/19/16 17:44 Laboratory Results 08/16/16 05:04 08/16/16 05:04 08/18/16 08/19/16 08/20/16 05:59 05:59 05:59 Intake Total 4033 1906 200 Output Total 4493 154 9752 Balance 2733 1106 -1300 ICD10 Worksheet Patient Problems: Problems Problem Status Onset Dyspnea Acute
[2016-08-19] MEDS ORDERED: BISACODYL 10 MG SUPP PR PRN (18:35)
[2016-08-19] MEDS ORDERED: BISACODYL 10 MG SUPP PR ONE (19:00)
[2016-08-19] MEDS: ASPIRIN EC 81 MG TAB PO SCH (21:35)
[2016-08-19] MEDS: PROGESTERONE,MICR 100 MG CAP PO SCH (21:35)
[2016-08-20] MEDS: LEVOTHYROXINE 88 MCG TAB PO SCH (06:31)
[2016-08-20 07:38] LABS: ANION GAP 9 mEq/L (8-16); CALCIUM 9.2 mg/dL (8.5-10.4); CARBON DIOXIDE 20 mEq/l (22-31); CHLORIDE 104 mEq/L (97-110); CREATININE 0.9 mg/dL (0.6-1.0); GLOMERULAR FILTRATION RATE > 60; GLUCOSE 83 mg/dL (70-100); SODIUM 133 mEq/L (134-144)
[2016-08-20] MEDS: DULoxetine 30 MG CAP PO SCH (09:09)
[2016-08-20] MEDS: buPROPion SR 150 MG TAB PO SCH (09:09)
[2016-08-20] MEDS: DULoxetine 60 MG CAP PO SCH (09:09)
[2016-08-20] MEDS: CLOPIDOGREL BISULFATE 75 MG TAB PO SCH (09:09)
[2016-08-20] MEDS: lamoTRIgine 100 MG TAB PO SCH (09:09)
[2016-08-20] MEDS ORDERED: BISACODYL 10 MG SUPP PR ONE (10:45)
--- NOTE | 2016-08-20 10:45 | SOAPPROG ---
SOAP Progress Note Assessment/Plan: Assessment/Plan: 71 Y F s/p laparotomy with CHICHI for SBO and repair of ventral hernia. POD#5. Ileus. Tolerating clears, crackers, appleauce. Advance to light diet. Pain. Pain better. Dulcolax OR today. Dispo: pending. May need SNF--patient lives alone. S: pain better with PO pain meds. says she is motivated to walk today O: alert, nad no wob, clear anteriorly cor: rrr abd: softly bloated, good BS, inc cdi 08/20/16 10:44 Objective: Vital Signs Temp Pulse Resp BP Pulse Ox 36.9 C 93 16 116/66 96 08/20/16 07:36 08/20/16 07:36 08/20/16 07:36 08/20/16 07:36 08/20/16 07:36 Laboratory Results 08/16/16 05:04 08/20/16 06:30 08/19/16 08/20/16 08/21/16 05:59 05:59 05:59 Intake Total 1906 200 Output Total 800 1700 Balance 1106 -1500 ICD10 Worksheet Patient Problems: Problems Problem Status Onset Dyspnea Acute
[2016-08-20] MEDS: LACTULOSE 20 GM/30 ML UDCUP PO SCH ×2 (15:54→21:56)
[2016-08-20] MEDS: KETOROLAC 30 MG/1 ML SDV IVP PRN ×2 (16:25→21:55)
[2016-08-20] MEDS: ASPIRIN EC 81 MG TAB PO SCH (21:54)
[2016-08-20] MEDS: PROGESTERONE,MICR 100 MG CAP PO SCH (21:55)
[2016-08-20] MEDS: DIAZEPAM 5 MG TAB PO PRN (21:55)
[2016-08-21] MEDS: LEVOTHYROXINE 88 MCG TAB PO SCH (07:35)
[2016-08-21] MEDS: HYDROmorphONE/DILAUDID 4 MG TAB PO PRN (08:06)
[2016-08-21] MEDS: DIAZEPAM 5 MG TAB PO PRN ×2 (08:06→22:45)
[2016-08-21] MEDS: lamoTRIgine 100 MG TAB PO SCH (08:07)
[2016-08-21] MEDS: buPROPion SR 150 MG TAB PO SCH (08:07)
[2016-08-21] MEDS: DULoxetine 30 MG CAP PO SCH (08:08)
[2016-08-21] MEDS: CLOPIDOGREL BISULFATE 75 MG TAB PO SCH (08:08)
[2016-08-21] MEDS: DULoxetine 60 MG CAP PO SCH (08:08)
[2016-08-21] MEDS: fentaNYL 75 MCG PATCH TD SCH (09:16)
[2016-08-21] MEDS: KETOROLAC 30 MG/1 ML SDV IVP PRN ×3 (09:48→22:45)
[2016-08-21] MEDS: LACTULOSE 20 GM/30 ML UDCUP PO SCH ×3 (10:16→22:45)
--- NOTE | 2016-08-21 14:04 | WOCRNPDOC ---
WOCRN Advanced Assessment Note - Skin Integrity Problem, Advanced Assess Left Ear Dressing Type: Open to Air Exudate Amount: None Integumentary Issue Intervention: Dressing Applied Selvin Wound Tissue: Erythema Selvin Wound Swelling: Moderate Wound Bed Constitution: Adhered Slough Wound Edges: Not Attached Site Measurement - Head-to-Toe Length X Width X Depth (cm): 1x1.4xnecrosis Skin Integrity Problem Comment: Biopsy site from growth on left antihelix. Area is tender and wound is 100% necrotic. Cleaned with ns and gauze. skin prep applied selvin wound and honey applied to wound bed. This was covered with 1/2 a convated duoderm dot to facilitate autolytic debridement. Rosina HAMM in room for care. Education with patient about findings, plan of care, and treatment. Patient will follow up at outpatient wound healing center after D/C. Wound care will f/u Friday 08/25 if patient is inpt at that time.
[2016-08-21] MEDS: ASPIRIN EC 81 MG TAB PO SCH (22:45)
[2016-08-21] MEDS: PROGESTERONE,MICR 100 MG CAP PO SCH (22:45)
[2016-08-21] MEDS: oxyCODONE IR 5 MG TAB PO PRN (22:50)
[2016-08-22] MEDS: LEVOTHYROXINE 88 MCG TAB PO SCH (07:53)
[2016-08-22] MEDS: KETOROLAC 30 MG/1 ML SDV IVP PRN (07:56)
[2016-08-22] MEDS: CLOPIDOGREL BISULFATE 75 MG TAB PO SCH (07:59)
[2016-08-22] MEDS: DULoxetine 30 MG CAP PO SCH (07:59)
[2016-08-22] MEDS: lamoTRIgine 100 MG TAB PO SCH (07:59)
[2016-08-22] MEDS: buPROPion SR 150 MG TAB PO SCH (07:59)
[2016-08-22] MEDS: DULoxetine 60 MG CAP PO SCH (07:59)
[2016-08-22] MEDS: LACTULOSE 20 GM/30 ML UDCUP PO SCH ×3 (08:02→20:47)
[2016-08-22] MEDS: IPRATROPIUM 0.06% NASAL SPRAY EACHNARE PRN (09:32)
[2016-08-22] MEDS: DIAZEPAM 5 MG TAB PO PRN ×2 (09:32→22:03)
[2016-08-22] MEDS: ONDANSETRON DISINTEGRATING 4 MG TAB PO PRN (09:33)
--- NOTE | 2016-08-22 13:15 | SOAPPROG ---
SOAP Progress Note Assessment/Plan: Assessment: Wound great/afebrile/eating well/ abdomen is soft/BM yesterday/home in the a.m. Plan: Home in the a.m. 08/22/16 13:14 Objective: Vital Signs Temp Pulse Resp BP Pulse Ox 36.8 C 71 18 110/53 L 95 08/22/16 07:37 08/22/16 07:37 08/22/16 07:37 08/22/16 07:37 08/22/16 07:37 Laboratory Results 08/16/16 05:04 08/20/16 06:30 08/21/16 08/22/16 08/23/16 05:59 05:59 05:59 Intake Total 200 500 Balance 200 500 ICD10 Worksheet Patient Problems: Problems Problem Status Onset Dyspnea Acute
[2016-08-22] MEDS: oxyCODONE IR 5 MG TAB PO PRN (18:27)
[2016-08-22] MEDS: ASPIRIN EC 81 MG TAB PO SCH (20:47)
[2016-08-22] MEDS: PROGESTERONE,MICR 100 MG CAP PO SCH (20:48)
[2016-08-22] MEDS: HYDROmorphONE/DILAUDID 4 MG TAB PO PRN (20:48)
[2016-08-23] MEDS: LEVOTHYROXINE 88 MCG TAB PO SCH (05:38)
[2016-08-23] MEDS: HYDROmorphONE/DILAUDID 4 MG TAB PO PRN ×2 (07:38→16:02)
[2016-08-23 08:14] VITALS: TEMP 97.5
[2016-08-23] MEDS: buPROPion SR 150 MG TAB PO SCH (09:26)
[2016-08-23] MEDS: DULoxetine 60 MG CAP PO SCH (09:27)
[2016-08-23] MEDS: fentaNYL 75 MCG PATCH TD SCH (09:27)
[2016-08-23] MEDS: LACTULOSE 20 GM/30 ML UDCUP PO SCH ×2 (09:27→17:14)
[2016-08-23] MEDS: CLOPIDOGREL BISULFATE 75 MG TAB PO SCH (09:27)
[2016-08-23] MEDS: DULoxetine 30 MG CAP PO SCH (09:27)
[2016-08-23] MEDS: lamoTRIgine 100 MG TAB PO SCH (09:28)
--- NOTE | 2016-08-23 13:22 | PDIAF ---
- Diagnosis Diagnosis: VENTRAL HERNIA/ SBO Code Status: Full Code - Medication Management Discharge Medications: Medications to Continue on Transfer Aspirin EC [Aspirin EC 81 mg (*)] 81 mg PO HS 08/15/16 [Last Taken 08/14/16] Clobetasol 0.05% [Temovate Cream] 1 carolyn TP BID PRN 08/15/16 [Last Taken Unknown] Clopidogrel Bisulfate [Plavix (*)] 75 mg PO DAILY 08/15/16 [Last Taken 08/15/16] DULoxetine [Cymbalta 30 MG (*)] 30 mg PO DAILY 08/15/16 [Last Taken 08/15/16] DULoxetine [Cymbalta 60 MG (*)] 60 mg PO DAILY 08/15/16 [Last Taken 08/15/16] Dextroamphetamine Sulfate [Dextroamphetamine Sulfate ER] 10 mg PO DAILY PRN [Last Taken Unknown] Diazepam [Valium 5 MG (*)] 5 mg PO TID PRN 08/15/16 [Last Taken Unknown] Eszopiclone [Lunesta] 3 mg PO HS PRN 08/15/16 [Last Taken Unknown] Ipratropium 0.06% Nasal [Atrovent 0.06% Nasal (RX)] 1 sprays EACHNARE BID PRN [Last Taken Unknown] LORazepam [Ativan (*)] 0.5 - 1 mg PO HS PRN 08/15/16 [Last Taken Unknown] Nitroglycerin [Nitrostat 0.4 mg (*)] 0.4 mg SL AD PRN 08/15/16 [Last Taken Unknown] Omeprazole 40 mg PO DAILY PRN 08/15/16 [Last Taken Unknown] Ondansetron HCl [Zofran] 4 mg PO BID PRN 08/15/16 [Last Taken Unknown] PARoxetine HCL [Paxil 10mg (*)] 30 mg PO DAILY 08/15/16 [Last Taken 08/15/16] Progesterone, Micronized [Progesterone] 200 mg PO HS 08/15/16 [Last Taken ] QUEtiapine FUMARATE [Seroquel 25 mg (*)] 25 - 50 mg PO HS PRN 08/15/16 [Last Taken Unknown] buPROPion SR [Wellbutrin 150mg SR (*)] 150 mg PO DAILY 08/15/16 [Last Taken 07:00] fentaNYL [Duragesic 75 MCG Patch (*)] 75 mcg TD Q48H 08/15/16 [Last Taken ] lamoTRIgine [LamICTAL 100 MG (*)] 100 mg PO DAILY 08/15/16 [Last Taken 08/15/16] Levothyroxine [Synthroid 88 mcg (*)] 88 mcg PO DAILY06 08/18/16 [Last Taken Unknown] Discharge Medications: Refer to the Discharge Home Medication list for PRN reason. - Orders Services needed: Home Care, Registered Nurse, Physical Therapy Home Care Face to Face: I certify that this patient was under my care and that I had the required [id number] encounter meeting the encounter requirements on the discharge day. My findings support the fact that the patient is homebound as defined in CMS Chapter 7 Medicare Benefits Manual 30.1.1, The condition of the patient is such that there exists a normal inability to leave home and consequently, leaving home would require a considerable and taxing effort. Diet Recommendation: no restrictions on diet Diet Texture: Regular Texture Diet - Follow Up Care Current Providers and Referrals: NONE *PRIMARY CARE P,. [Primary Care Provider] -
--- NOTE | 2016-08-23 13:27 | SOAPPROG ---
SOAP Progress Note Assessment/Plan: Assessment: Wound great/afebrile/eating well/ abdomen is soft/BM yesterday/home in the a.m. LESION LEFT PINNA WITH SMALL ULCER AFTER BX/ WILL FOLLOW Plan: Home in the a.m. 08/22/16 13:14 08/23/16 13:26 Objective: Vital Signs Temp Pulse Resp BP Pulse Ox 36.4 C 84 14 114/64 97 08/23/16 08:00 08/23/16 08:00 08/23/16 08:00 08/23/16 08:00 08/23/16 08:00 Laboratory Results 08/16/16 05:04 08/20/16 06:30 08/22/16 08/23/16 08/24/16 05:59 05:59 05:59 Intake Total 500 400 Balance 500 400 ICD10 Worksheet Patient Problems: Problems Problem Status Onset Dyspnea Acute
--- NOTE | 2016-08-23 13:31 | SOAPPROG ---
SOAP Progress Note Assessment/Plan: Assessment: Wound great/afebrile/eating well/ abdomen is soft/BM yesterday/home in the a.m. LESION LEFT PINNA WITH SMALL ULCER AFTER BX/ WILL FOLLOW Plan: Home in the a.m. 08/22/16 13:14 08/23/16 13:26 08/23/16 13:27 DOING BETTER BUT USING LOTS OF DILAUDID/ HOME TODAY WITH HOMECARE/ WOUND OK/ AFEBRILE/ SOME DIARHEA AFTER LACTULOSE SMALL EAR LESION STILL DRAINING Objective: Vital Signs Temp Pulse Resp BP Pulse Ox 36.4 C 84 14 114/64 97 08/23/16 08:00 08/23/16 08:00 08/23/16 08:00 08/23/16 08:00 08/23/16 08:00 Laboratory Results 08/16/16 05:04 08/20/16 06:30 08/22/16 08/23/16 08/24/16 05:59 05:59 05:59 Intake Total 500 400 Balance 500 400 ICD10 Worksheet Patient Problems: Problems Problem Status Onset Dyspnea Acute
[2016-08-23] MEDS: ONDANSETRON DISINTEGRATING 4 MG TAB PO PRN (15:49)
[2016-08-23 16:16] VITALS: BP 120/72; PULSE 86; RESP 16; O2SAT 95
--- NOTE | 2016-09-23 05:41 | GOP ---
[f rep st] OPERATIVE REPORT DATE OF OPERATION: 08/15/2016 SURGEON: Alexys May MD ANESTHESIOLOGIST: Dr. Laguna. PREOPERATIVE DIAGNOSIS: Incarcerated ventral hernia. POSTOPERATIVE DIAGNOSIS: Incarcerated ventral hernia plus small bowel obstruction. PROCEDURE PERFORMED: Laparotomy with lysis of adhesions for small bowel obstruction. Repair of incisional ventral hernia. FINDINGS: The patient was found to have a 5 cm ventral hernia with an obstructed knot of mid jejunal small bowel. DESCRIPTION OF PROCEDURE: The patient was taken to the operating room where she received satisfactory general endotracheal anesthesia. She was placed in the supine position, prepped and draped in usual sterile fashion. A midline abdominal incision was made and carried through the subcutaneous tissue. Hernia sac was encountered. It was dissected free from the fascia. The sac was opened. Its contents were freed up and reduced. All adhesions were lysed. Excess sac was amputated. The abdomen was then explored with a knot of small bowel being encountered in the mid abdomen which appeared to be a partial blockage. The bowels were freed up and tediously lysed for the entire length of bowel from the ligament of Treitz to the ileocecal valve. No resection was required. No enterotomies were encountered. The wound was irrigated. Hemostasis was assured. The bowel was then covered with omentum. Attention was turned back to the ventral hernia which was then repaired in a pants-over- vest 2-layer closure with #1 Ethibond mattress sutures in a 2-layer fashion. Hemostasis was assured. A 15 round silicone drain was brought out through a separate stab incision and placed over the abdominal fascia. Subcu was then closed with a running 2-0 Vicryl suture, the skin with skin jennifer. She tolerated the procedure well. Blood loss from the procedure was minimal. There were no complications. There was no painter assistant. /[id number]/MODL MTDD
--- NOTE | 2016-09-24 12:46 | GDS ---
[f rep st] DISCHARGE SUMMARY DISCHARGE DIAGNOSES: 1. Incarcerated ventral hernia. 2. Small bowel obstruction. 3. Issues with postoperative pain control. 4. Ileus. 5. Constipation. PROCEDURES: Laparotomy with lysis of adhesions for small bowel obstruction with repair of incisiona l ventral hernia. INTRAOPERATIVE FINDINGS: Patient was found to have a 5 cm ventral hernia with an obstructed knot of mid jejunal small bowel. HOSPITAL COURSE: The patient is a 71-year-old female who presented with complaints of 3 months of n ausea, abdominal distention, and cramping pain of her abdomen. This suddenly got worse, and she dev eloped some diarrhea. A CT scan showed distention of the jejunum and proximal ileum without a defin ite transition point. She was also found to have a fat-containing ventral hernia. She underwent e above procedure with Dr. Alexys May. Her hernia was repaired, and some adhesions around the mi d jejunum were lysed. The procedure was uncomplicated. She tolerated it well. Patient had some postoperative pain control issues as well as ileus and constipation. She required pretty high doses of opioids for adequate pain control. She did end up requiring a reduction in her HOGSHEAD DUMPER dose for some hypoxia. Ultimately, her ileus improved, her diet was advanced, and her pain was controlled with oral pain medicines. DISCHARGE INSTRUCTIONS: Patient was discharged to home in stable condition with plans for outpatien t followup. Arrangements were made for a home healthcare nurse as well as physical therapy. /[id number]/MODL
== END 2016-08-23 17:15 | disposition home health service (06) | DRG 336 ==
LOC: F3E 15:34
PROVIDERS: ADMIT Surgery; ATTEND Surgery
PROC: 0WQF0ZZ Repair Abdominal Wall, Open Approach (ICD-10-PCS; principal; 2016-08-15 14:45)
PROC: 0DN80ZZ Release Small Intestine, Open Approach (ICD-10-PCS; principal; 2016-08-15 14:45)
DX: K43.6 Other and unspecified ventral hernia with obstruction, without gangrene (principal); K56.5 Intestinal adhesions [bands] with obstruction (postinfection); Z95.5 Presence of coronary angioplasty implant and graft
CPT/HCPCS: 36415-PO; 97161-GP; 97165-GO; 97535-GO; G0463-PO; G8978-GP-CI; G8979-GP-CI; G8980-GP-CI; G8987-GO-CI; G8988-GO-CH; G8989-GO-CH; J0690; J0697; J1170; J1885; J2250; J2370; J2405; J2550; J2597; J2704; J2765; J3010

== ENCOUNTER 2017-07-05 23:36 | Observation (INO) | payer OTHER ==
[2017-07-05] MEDS ORDERED: NS 1,000 ML IV ONE (23:39)
--- NOTE | 2017-07-05 23:46 | CPEKG ---
Heart Rate: 73 RR Interval: 822 P-R Interval: 168 QRSD Interval: 70 QT Interval: 408 QTC Interval: 450 P Medford: 48 QRS Medford: 11 T Wave Medford: -2 EKG Severity - NORMAL ECG - EKG Impression: SINUS RHYTHM Electronically Signed By: Jean Doyle 06-Jul-2017 06:14:28
--- NOTE | 2017-07-05 23:47 | EDPHY ---
H & P Stated Complaint: CP since 2099, hx of angina Time Seen by Provider: 07/05/17 23:44 HPI/ROS: HPI CHIEF COMPLAINT: Chest pain now resolved. HISTORY OF PRESENT ILLNESS: Patient is a 72-year-old female, history of coronary artery disease with 2 stents, she has a history of angina takes nitro, she presents emergency with chest discomfort. She states around 9:00 p.m. She was getting ready for bed and developed sudden-onset chest discomfort. She describes a pressure sensation. This radiating to her neck and down both arms. She states this feels very similar to previous angina but worse. More severe. Patient states the discomfort got worse. She patient states that she took 4 nitroglycerin, got hot shower and 2 full-dose aspirin. The chest pain is now resolved. She denies headache or neck pain or arm pain. Past Medical History: Coronary disease with stents. Past Surgical History: Abdominal surgery Social History: Denies daily use drugs alcohol tobacco. Family History: Noncontributory ROS REVIEW OF SYSTEMS: A comprehensive 10 point review of systems is otherwise negative aside from elements mentioned in the history of present illness. Exam Constitutional appears well nontoxic triage nursing summary reviewed, vital signs reviewed, awake/alert. Eyes normal conjunctivae and sclera, EOMI, PERRLA. HENT normal inspection, atraumatic, moist mucus membranes, no epistaxis, neck supple/ no meningismus, no raccoon eyes. Respiratory clear to auscultation bilaterally, normal breath sounds, no respiratory distress, no wheezing. Cardiovascular rate normal, regular rhythm, no murmur, no edema, distal pulses normal. Gastrointestinal soft, non-tender, no rebound, no guarding, normal bowel sounds, no distension, no pulsatile mass. Genitourinary no CVA tenderness. Musculoskeletal no midline vertebral tenderness, full range of motion, no calf swelling, no tenderness of extremities, no meningismus, good pulses, neurovascularly intact. Skin pink, warm, & dry, no rash, skin atraumatic. Neurologic awake, alert and oriented x 3, AAOx3, moves all 4 extremities equally, motor intact, sensory intact, CN II-XII intact, normal cerebellar, normal vision, normal speech. Psychiatric normal mood/affect. Heme/Lymph/Immune no lymphadenopathy. Differential diagnosis includes but is not limited to: ACS, atypical chest pain , pneumothorax, pneumonia, pulmonary embolism, aortic dissection, congestive heart failure, tumor, musculoskeletal pain, esophageal pain, GERD, peptic ulcer disease, pancreatitis Medical Decision Making: Plan for this patient IV establishment full desk monitor obtain EKG, obtain troponin, rule out acute coronary syndrome. Re-evaluation: EKG interpretation by me on record in [employer] system. Impression time of EKG 2343 this is sinus rhythm rate of 73. T-wave abnormality lead 3. Isolated. No ST elevation. No ST depression. No significant T-wave abnormalities. ED x-ray chest one view: Negative for acute cardiopulmonary disease. 0139: Patient resting comfortably no acute distress. No chest pain at this time. Workup for chest pain shows a normal EKG. Negative troponin negative D-dimer. Chest x-ray unremarkable. Given patient's age, risk factors including coronary disease with stents and chest discomfort for relieved by nitroglycerin should be admitted to the hospital for further evaluation observation and cardiac rule out. Risk stratification. Spoke with Hospalist Service. Dr. Delgado, Agrees to admit. Source: Patient, EMS - Personal History Tetanus Vaccine Date: 2005 - Medical/Surgical History Hx Asthma: No Hx Chronic Respiratory Disease: No Hx Diabetes: No Hx Cardiac Disease: Yes Hx Renal Disease: No Hx Cirrhosis: No Hx Alcoholism: No Hx HIV/AIDS: No Hx Splenectomy or Spleen Trauma: No Other PMH: CAD,2 stents to RCA (10/2015) SOB, chronic back pain, TBI, hyperlipidemia, polio with lft side effected, L5-S1 lami, abd sx, depression, chronic fatigue syndrome - Social History Smoking Status: Former smoker Constitutional: Initial Vital Signs Heart Rate 77 07/05/17 23:41 Respiratory Rate 18 07/05/17 23:41 Blood Pressure 139/77 H 07/05/17 23:41 O2 Sat (%) 98 07/05/17 23:41 O2 Delivery Mode Room Air Allergies/Adverse Reactions: No Known Allergies Allergy (Verified 07/05/17 23:43) Home Medications: Medication Instructions Recorded Aspirin EC [Aspirin EC 81 mg (*)] 81 mg PO HS 08/15/16 Clobetasol 0.05% [Temovate Cream] 1 carolyn TP BID PRN 08/15/16 Clopidogrel Bisulfate [Plavix (*)] 75 mg PO DAILY 08/15/16 DULoxetine [Cymbalta 30 MG (*)] 30 mg PO DAILY 08/15/16 DULoxetine [Cymbalta 60 MG (*)] 60 mg PO DAILY 08/15/16 Dextroamphetamine Sulfate 10 mg PO DAILY PRN 08/15/16 [Dextroamphetamine Sulfate ER] Diazepam [Valium 5 MG (*)] 5 mg PO TID PRN 08/15/16 Eszopiclone [Lunesta] 3 mg PO HS PRN 08/15/16 Ipratropium 0.06% Nasal [Atrovent 1 sprays EACHNARE BID PRN 08/15/16 0.06% Nasal (RX)] LORazepam [Ativan (*)] 0.5 - 1 mg PO HS PRN 08/15/16 Nitroglycerin [Nitrostat 0.4 mg 0.4 mg SL AD PRN 08/15/16 (*)] Omeprazole 40 mg PO DAILY PRN 08/15/16 Ondansetron HCl [Zofran] 4 mg PO BID PRN 08/15/16 PARoxetine HCL [Paxil 10mg (*)] 30 mg PO DAILY 08/15/16 Progesterone, Micronized 200 mg PO HS 08/15/16 [Progesterone] QUEtiapine FUMARATE [Seroquel 25 25 - 50 mg PO HS PRN 08/15/16 mg (*)] buPROPion SR [Wellbutrin 150mg SR 150 mg PO DAILY 08/15/16 (*)] fentaNYL [Duragesic 75 MCG Patch 75 mcg TD Q48H 08/15/16 (*)] lamoTRIgine [LamICTAL 100 MG (*)] 100 mg PO DAILY 08/15/16 Levothyroxine [Synthroid 88 mcg 88 mcg PO DAILY06 08/18/16 (*)] Medical Decision Making - Diagnostics Imaging Results: Imaging Impressions Chest X-Ray 07/05/17 23:40 Impression: No acute abnormality. - Data Points Laboratory Results: Laboratory Results 07/06/17 00:40 07/06/17 00:40 07/06/17 07/06/17 07/06/17 00:40 00:40 00:40 WBC 5.74 10^3/uL 10^3/uL (3.80-9.50) RBC 3.45 10^6/uL L 10^6/uL (4.18-5.33) Hgb 11.0 g/dL L g/dL (12.6-16.3) Hct 34.0 % L % (38.0-47.0) MCV 98.6 fL fL (81.5-99.8) MCH 31.9 pg pg (27.9-34.1) MCHC 32.4 g/dL g/dL (32.4-36.7) RDW 14.4 % % (11.5-15.2) Plt Count 292 10^3/uL 10^3/uL (150-400) MPV 9.1 fL fL (8.7-11.7) Neut % (Auto) 47.6 % % (39.3-74.2) Lymph % (Auto) 37.1 % % (15.0-45.0) Routt % (Auto) 10.8 % % (4.5-13.0) Eos % (Auto) 3.7 % % (0.6-7.6) Baso % (Auto) 0.5 % % (0.3-1.7) Nucleat RBC Rel Count 0.0 % % (0.0-0.2) Absolute Neuts (auto) 2.73 10^3/uL 10^3/uL (1.70-6.50) Absolute Lymphs (auto) 2.13 10^3/uL 10^3/uL (1.00-3.00) Absolute Monos (auto) 0.62 10^3/uL 10^3/uL (0.30-0.80) Absolute Eos (auto) 0.21 10^3/uL 10^3/uL (0.03-0.40) Absolute Basos (auto) 0.03 10^3/uL 10^3/uL (0.02-0.10) Absolute Nucleated RBC 0.00 10^3/uL 10^3/uL (0-0.01) Immature Gran % 0.3 % % (0.0-1.1) Immature Gran # 0.02 10^3/uL 10^3/uL (0.00-0.10) PT 13.3 SEC SEC (12.0-15.0) INR 0.99 (0.83-1.16) APTT 32.9 SEC SEC (23.0-38.0) D-Dimer 0.35 ug/mLFEU ug/mLFEU (0.00-0.50) Sodium 143 mEq/L mEq/L (135-145) Potassium 4.1 mEq/L mEq/L (3.5-5.2) Chloride 107 mEq/L mEq/L (97-110) Carbon Dioxide 26 mEq/l mEq/l (22-31) Anion Gap 10 mEq/L mEq/L (8-16) BUN 31 mg/dL H mg/dL (7-23) Creatinine 0.8 mg/dL mg/dL (0.6-1.0) Estimated GFR > 60 Glucose 84 mg/dL mg/dL (70-100) Calcium 9.2 mg/dL mg/dL (8.5-10.4) Magnesium 2.1 mg/dL mg/dL (1.6-2.3) Total Bilirubin 0.2 mg/dL mg/dL (0.1-1.4) Conjugated Bilirubin 0.2 mg/dL mg/dL (0.0-0.5) Unconjugated Bilirubin 0.0 mg/dL mg/dL (0.0-1.1) AST 17 IU/L IU/L (14-46) ALT 23 IU/L IU/L (9-52) Alkaline Phosphatase 61 IU/L IU/L (38-126) Creatine Kinase 66 IU/L IU/L (0-156) CK-MB (CK-2) Fraction 1.44 ng/mL ng/mL (0.00-4.55) Troponin I < 0.012 ng/mL ng/mL (0.000-0.034) NT-Pro-B Natriuret Pep 149 pg/mL H pg/mL (0-125) Total Protein 6.3 g/dL g/dL (6.3-8.2) Albumin 3.5 g/dL g/dL (3.5-5.0) Lipase 72 IU/L IU/L (23-300) Medications Given: Discontinued Medications Sodium Chloride (Ns) 1,000 mls @ 0 mls/hr IV EDNOW ONE; Wide Open PRN Reason: Protocol Stop: 07/05/17 23:40 Last Admin: 07/06/17 00:46 Dose: 1,000 mls Departure - Departure Disposition: [facility] Inpatient Acute Clinical Impression: Chest pain Qualifiers: Chest pain type: unspecified Qualified Code(s): R07.9 - Chest pain, unspecified Condition: Fair Referrals: Patient,NotPresent [Unknown] - As per Instructions
[2017-07-06 00:53] LABS: PLATELET COUNT 292 10^3/uL (150-400)
[2017-07-06 00:57] LABS: INR 0.99 (0.83-1.16); PROTIME(PATIENT) 13.3 SEC (12.0-15.0)
[2017-07-06 01:25] LABS: CREATINE KINASE 66 IU/L (0-156)
[2017-07-06] MEDS ORDERED: ONDANSETRON 4 MG/2 ML VIAL IVP PRN (01:43)
[2017-07-06] MEDS ORDERED: ONDANSETRON DISINTEGRATING 4 MG TAB PO PRN (01:43)
[2017-07-06] MEDS ORDERED: ACETAMINOPHEN 325 MG TAB PO PRN (01:43)
--- NOTE | 2017-07-06 02:03 | PDGENHP ---
History and Physical - Chief Complaint Chest pain - History of Present Illness 72 yo F w/ CAD s/p PCI to RCA x2 in 2016 p/w chest pain. She was going to sleep when she had central chest pain with radiation to bilateral arms. This causes her arms to jerk and then leads her to "holler out". She has had similar episodes in the past described in various cardiology encounters. She had a cardiac catheterization in April of 2016 for evaluation of similar symptoms, which was negative for occlusive disease. Evaluation in the ED is thus far unremarkable. She is compliant with her home cardiac medications. History Information - Allergies/Home Medication List Allergies/Adverse Reactions: No Known Allergies Allergy (Verified 07/05/17 23:43) Home Medications: Aspirin EC [Aspirin EC 81 mg (*)] 81 mg PO HS 08/15/16 [Last Taken 08/14/16] Clobetasol 0.05% [Temovate Cream] 1 carolyn TP BID PRN 08/15/16 [Last Taken Unknown] Clopidogrel Bisulfate [Plavix (*)] 75 mg PO DAILY 08/15/16 [Last Taken 08/15/16] DULoxetine [Cymbalta 30 MG (*)] 30 mg PO DAILY 08/15/16 [Last Taken 08/15/16] DULoxetine [Cymbalta 60 MG (*)] 60 mg PO DAILY 08/15/16 [Last Taken 08/15/16] Dextroamphetamine Sulfate [Dextroamphetamine Sulfate ER] 10 mg PO DAILY PRN [Last Taken Unknown] Diazepam [Valium 5 MG (*)] 5 mg PO TID PRN 08/15/16 [Last Taken Unknown] Eszopiclone [Lunesta] 3 mg PO HS PRN 08/15/16 [Last Taken Unknown] Ipratropium 0.06% Nasal [Atrovent 0.06% Nasal (RX)] 1 sprays EACHNARE BID PRN [Last Taken Unknown] LORazepam [Ativan (*)] 0.5 - 1 mg PO HS PRN 08/15/16 [Last Taken Unknown] Nitroglycerin [Nitrostat 0.4 mg (*)] 0.4 mg SL AD PRN 08/15/16 [Last Taken Unknown] Omeprazole 40 mg PO DAILY PRN 08/15/16 [Last Taken Unknown] Ondansetron HCl [Zofran] 4 mg PO BID PRN 08/15/16 [Last Taken Unknown] PARoxetine HCL [Paxil 10mg (*)] 30 mg PO DAILY 08/15/16 [Last Taken 08/15/16] Progesterone, Micronized [Progesterone] 200 mg PO HS 08/15/16 [Last Taken ] QUEtiapine FUMARATE [Seroquel 25 mg (*)] 25 - 50 mg PO HS PRN 08/15/16 [Last Taken Unknown] buPROPion SR [Wellbutrin 150mg SR (*)] 150 mg PO DAILY 08/15/16 [Last Taken 07:00] fentaNYL [Duragesic 75 MCG Patch (*)] 75 mcg TD Q48H 08/15/16 [Last Taken ] lamoTRIgine [LamICTAL 100 MG (*)] 100 mg PO DAILY 08/15/16 [Last Taken 08/15/16] Levothyroxine [Synthroid 88 mcg (*)] 88 mcg PO DAILY06 08/18/16 [Last Taken Unknown] I have personally reviewed and updated: family history, medical history - Past Medical History coronary artery disease - Surgical History Reports: hernia repair - Family History Positive for: CAD - Social History Smoking Status: Former smoker Review of Systems Review of Systems: ROS: 10pt was reviewed & negative except for what was stated in HPI & below Physical Exam Physical Exam: Temp Pulse Resp BP Pulse Ox 36.3 C 77 18 139/77 H 98 07/05/17 23:44 07/05/17 23:44 07/05/17 23:44 07/05/17 23:44 07/05/17 23:44 Constitutional: no apparent distress, not in pain Eyes: PERRL, EOMI Ears, Nose, Mouth, Throat: moist mucous membranes, no oral mucosal ulcers Cardiovascular: regular rate and rhythym, no murmur, rub, or gallop Respiratory: no respiratory distress, no rales or rhonchi Gastrointestinal: normoactive bowel sounds, soft, non-tender abdomen Skin: warm, normal color Musculoskeletal: full muscle strength, no muscle tenderness Neurologic: AAOx3, CN II-XII Intact Psychiatric: interacting appropriately, not anxious Lab Data & Imaging Review 07/06/17 00:40 07/06/17 00:40 WBC 5.74 10^3/uL (3.80-9.50) 07/06/17 00:40 RBC 3.45 10^6/uL (4.18-5.33) L 07/06/17 00:40 Hgb 11.0 g/dL (12.6-16.3) L 07/06/17 00:40 Hct 34.0 % (38.0-47.0) L 07/06/17 00:40 MCV 98.6 fL (81.5-99.8) 07/06/17 00:40 MCH 31.9 pg (27.9-34.1) 07/06/17 00:40 MCHC 32.4 g/dL (32.4-36.7) 07/06/17 00:40 RDW 14.4 % (11.5-15.2) 07/06/17 00:40 Plt Count 292 10^3/uL (150-400) 07/06/17 00:40 MPV 9.1 fL (8.7-11.7) 07/06/17 00:40 Neut % (Auto) 47.6 % (39.3-74.2) 07/06/17 00:40 Lymph % (Auto) 37.1 % (15.0-45.0) 07/06/17 00:40 [place] % (Auto) 10.8 % (4.5-13.0) 07/06/17 00:40 Eos % (Auto) 3.7 % (0.6-7.6) 07/06/17 00:40 Baso % (Auto) 0.5 % (0.3-1.7) 07/06/17 00:40 Nucleat RBC Rel Count 0.0 % (0.0-0.2) 07/06/17 00:40 Absolute Neuts (auto) 2.73 10^3/uL (1.70-6.50) 07/06/17 00:40 Absolute Lymphs (auto) 2.13 10^3/uL (1.00-3.00) 07/06/17 00:40 Absolute Monos (auto) 0.62 10^3/uL (0.30-0.80) 07/06/17 00:40 Absolute Eos (auto) 0.21 10^3/uL (0.03-0.40) 07/06/17 00:40 Absolute Basos (auto) 0.03 10^3/uL (0.02-0.10) 07/06/17 00:40 Absolute Nucleated RBC 0.00 10^3/uL (0-0.01) 07/06/17 00:40 Immature Gran % 0.3 % (0.0-1.1) 07/06/17 00:40 Immature Gran # 0.02 10^3/uL (0.00-0.10) 07/06/17 00:40 PT 13.3 SEC (12.0-15.0) 07/06/17 00:40 INR 0.99 (0.83-1.16) 07/06/17 00:40 APTT 32.9 SEC (23.0-38.0) 07/06/17 00:40 D-Dimer 0.35 ug/mLFEU (0.00-0.50) 07/06/17 00:40 Sodium 143 mEq/L (135-145) 07/06/17 00:40 Potassium 4.1 mEq/L (3.5-5.2) 07/06/17 00:40 Chloride 107 mEq/L (97-110) 07/06/17 00:40 Carbon Dioxide 26 mEq/l (22-31) 07/06/17 00:40 Anion Gap 10 mEq/L (8-16) 07/06/17 00:40 BUN 31 mg/dL (7-23) H 07/06/17 00:40 Creatinine 0.8 mg/dL (0.6-1.0) 07/06/17 00:40 Estimated GFR > 60 07/06/17 00:40 Glucose 84 mg/dL (70-100) 07/06/17 00:40 Calcium 9.2 mg/dL (8.5-10.4) 07/06/17 00:40 Magnesium 2.1 mg/dL (1.6-2.3) 07/06/17 00:40 Total Bilirubin 0.2 mg/dL (0.1-1.4) 07/06/17 00:40 Conjugated Bilirubin 0.2 mg/dL (0.0-0.5) 07/06/17 00:40 Unconjugated Bilirubin 0.0 mg/dL (0.0-1.1) 07/06/17 00:40 AST 17 IU/L (14-46) 07/06/17 00:40 ALT 23 IU/L (9-52) 07/06/17 00:40 Alkaline Phosphatase 61 IU/L (38-126) 07/06/17 00:40 Creatine Kinase 66 IU/L (0-156) 07/06/17 00:40 CK-MB (CK-2) Fraction 1.44 ng/mL (0.00-4.55) 07/06/17 00:40 Troponin I < 0.012 ng/mL (0.000-0.034) 07/06/17 00:40 NT-Pro-B Natriuret Pep 149 pg/mL (0-125) H 07/06/17 00:40 Total Protein 6.3 g/dL (6.3-8.2) 07/06/17 00:40 Albumin 3.5 g/dL (3.5-5.0) 07/06/17 00:40 Lipase 72 IU/L (23-300) 07/06/17 00:40 Imaging Review: Imaging Impressions Chest X-Ray 07/05/17 23:40 Impression: No acute abnormality. Visualized and Interpreted Chest x-ray results: Yes Chest X-Ray results: no infiltrate Visualized and Interpreted EKG results: Yes EKG Interpretation: Positive for: normal sinsus rhythm Assessment & Plan Assessment: 72 yo F w/ hx of CAD s/p PCI x2 to RCA in 2016 p/w chest pain. Plan: 1. Atypical chest pain - Central chest pain with radiation to b/l arms that causes her "arms to jerk" and then leads her to "holler out". She has had these symptoms evaluated in the past, specifically with a cardiac catheterization in April of 2016 that was negative for obstructive disease. Her usual episodes last about 40 minutes; tonight the discomfort persisted for 1 hour so she came to the ED. Work up thus far unremarkable. - Admit to PCU for observation - Monitor on telemetry, trend cardiac enzymes - Cardiology consult to help decide need for further testing 2. Hx CAD - S/p PCI x2 to RCA in 2016; she is compliant with her home medications. 3. Normocytic anemia - Mild, will check ferritin and B12. Diet - NPO pending ACS r/o Code - Full Ppx - LMWH Dispo - Admit under observation status
[2017-07-06 05:51] LABS: PLATELET COUNT 280 10^3/uL (150-400)
[2017-07-06] MEDS ORDERED: DIAZEPAM 5 MG TAB PO PRN (08:35)
[2017-07-06] MEDS ORDERED: CLOBETASOL 0.05% 15 GM CRTUBE TP PRN (08:35)
[2017-07-06] MEDS ORDERED: QUEtiapine FUMARATE 25 MG TAB PO PRN (08:35)
[2017-07-06] MEDS ORDERED: IPRATROPIUM 0.06% NASAL SPRAY EACHNARE PRN (08:35)
[2017-07-06] MEDS ORDERED: NITROGLYCERIN 0.4 MG BTL SL PRN (08:35)
[2017-07-06] MEDS ORDERED: fentaNYL 75 MCG PATCH TD SCH (08:45)
[2017-07-06] MEDS ORDERED: lamoTRIgine 100 MG TAB PO SCH (09:00)
[2017-07-06] MEDS ORDERED: OMEGA-3 FATTY ACIDS 1,000 MG CAP PO SCH (09:00)
[2017-07-06] MEDS ORDERED: buPROPion SR 150 MG TAB PO SCH (09:00)
[2017-07-06] MEDS ORDERED: DULoxetine 60 MG CAP PO SCH (09:00)
[2017-07-06] MEDS ORDERED: MULTIVITAMINS 1 EACH TAB PO SCH (09:00)
[2017-07-06] MEDS ORDERED: DULoxetine 30 MG CAP PO SCH (09:00)
[2017-07-06] MEDS ORDERED: ENOXAPARIN 40 MG/0.4 ML SYR SC SCH (09:00)
--- NOTE | 2017-07-06 09:27 | HOSPPROG ---
Hospitalist Progress Note Assessment/Plan: 72-year-old with a history of coronary artery disease and previous stent is admitted with atypical chest and arm pain. She also describes 10 min of confusion during the episode. This occurred after 40 min of pain until the E manager mall arrived. I suspect it may be related to anxiety given her history however I will do a brief workup for TIA as well. # atypical chest pain with bilateral arm pain. Has been evaluated previously with an angiogram and has seen Dr. Joseph in the clinic. The pain is consistent with her previous pain however was slightly longer duration which caused her to go to the ER * Cardiology evaluation, question whether she needs further evaluation here or she can do an outpatient evaluation * Troponins negative EKG normal # brief episode of confusion at the end of her chest pain episode. I suspect this is related to anxiety however I will get a carotid Doppler and echocardiogram to rule out obvious cause by TIA and continue telemetry while she is in the hospital. This evaluation is negative will continue her usual aspirin as she has had some sort of reaction to the Plavix in the past. # Depression: Followed by therapist as an outpatient and on multiple medications. Continue while here. # myofascial pain syndrome I suspect this is likely the cause of her chest pain and will have Cardiology see her to decide if she needs any further evaluation here in the hospital or if she can follow up with Cardiology as an outpatient. Subjective: Patient new to me and chart reviewed. No further pain in the hospital. No numbness tingling or any other neurologic symptoms. Objective: Vital Signs Temp Pulse Resp BP Pulse Ox 36.7 C 79 13 130/76 H 93 07/06/17 07:16 07/06/17 07:16 07/06/17 07:16 07/06/17 07:16 07/06/17 07:16 Laboratory Results 07/06/17 05:40 07/06/17 05:40 07/05/17 07/06/17 07/07/17 05:59 05:59 05:59 Intake Total 1000 Balance 1000 PT 13.3 SEC (12.0-15.0) 07/06/17 00:40 INR 0.99 (0.83-1.16) 07/06/17 00:40 - Physical Exam Constitutional: no apparent distress Eyes: PERRL, EOMI Ears, Nose, Mouth, Throat: moist mucous membranes Cardiovascular: regular rate and rhythym, no murmur, rub, or gallop Respiratory: no respiratory distress, clear to auscultation Gastrointestinal: normoactive bowel sounds, soft, non-tender abdomen Skin: warm, normal color Musculoskeletal: full muscle strength Neurologic: AAOx3, No facial droop Psychiatric: interacting appropriately ICD10 Worksheet Patient Problems: Problems Problem Status Onset Dyspnea Acute Chest pain Acute
[2017-07-06 12:12] VITALS: BP 145/67
--- NOTE | 2017-07-06 12:51 | ECHO ---
[email or web address] [address] [address] Main: [phone] Fax: Transthoracic Echocardiogram Name: ANA CRISTINA HEATON MR#: [id number] Study Date: 07/06/2017 Study Time: 10:15 AM Date of : 1945 Age: 72 year(s) Height: 170.2 cm (67 in.) Weight: 79.38 kg (175 lb.) BSA: 1.91 m2 Gender: Female Examination: Echo Indication: tia Image Quality: Adequate Contrast: Requested by: Kristy Kaufman BP: 130 mmHg/76 mmHg Heart Rate: Rhythm: Indication: tia Procedure Staff Dietary Assistant: Marisela Cruz [facility] Reading Physician: Alexys Bruner MD Requesting Provider: Conclusions: Normal size left ventricle. No LV hypertrophy. Normal global systolic LV function. EF is 62 %. No regional wall motion abnormality. Normal diastolic LV function. Normal RV function. The left atrium is moderately dilated. An agitated saline study was performed and was negative for intracardiac shunting. The right atrium is normal in size. The mitral valve is normal in appearance and function. Mild mitral valve leaflet calcification is present. Mild mitral valve regurgitation is present. No mitral stenosis is present. No aortic valve stenosis is present. There is multiple jets of mild aortic regurgitation present. The tricuspid valve is normal in appearance and function. Mild tricuspid regurgitation is present. The pulmonary artery pressure is mildly increased. Right ventricular systolic pressure measures 42mmHg. There is no pulmonic regurgitation seen. Normal size aortic root measuring 2.6 cm. Normal size ascending aorta measuring 2.7 cm. Measurements: Chambers Valvular Assessment AV/MV Valvular Assessment TV/PV Normal Normal Normal Name Value Range Name Value Range Name Value Range TR Vmax: 3.06 mm/s ( - ) Patient: ANA CRISTINA HEATON Study Date: 07/06/2017 Page 1 of 3 10:15 AM Ao Charlene (2D): 2.6 cm (1.4 cm-2.6 AV Vmax: 1.50 m/s (1 m/s-1.7 TR PGmax: 37 mmHg ( - ) cm) m/s) syst. PAP: 42 mmHg ( - ) IVSd (2D): 0.9 cm (0.6 cm-1.1 AV meanP mmHg ( - ) PV Vmax: 0.92 m/s (0.6 m/s-0.9 cm) KEL (VTI): 2.5 cm ( - ) m/s) LVDd (2D): 4.3 cm (3.9 cm-5.3 AR (PHT): 424 ms ( - ) PV PGmax: 3 mmHg ( - ) cm) MV E Vmax: 1.00 m/s ( - ) LVDs (2D): 2.6 cm (2.1 cm-4 MV A Vmax: 0.95 m/s ( - ) cm) MV E/A: 1.05 ( - ) LVPWd (2D): 0.8 cm ( - ) MV PHT: 0.066 s ( - ) LVOTd 2.0 cm 2.0 cm mm MVA (PHT): 3.3 s ( - ) LVEF (BP): 62 % (>=55 %) RVDd(2D): 3.2 cm (1.9 cm-3.8 cmmm) Continued Measurements: Chambers Valvular Assessment AV/MV Valvular Assessment TV/PV Name Value Name Value Name Value LADs: 4.0 cm MV DecTime: 215 m/s CVP (est.): 5 mmHg LADs Lon.3 cm MV E' Septal: 0.07 m/s LA Area: 26.2 cm2 MV E/E' Septal: 14.20 LA Volume: 86 ml MV E/E' Lateral: 10.90 LA Volume Index: 45.0 ml/m2 AR Vmax: 4.44 cm/s RA Area: 18.3 cm2 Additional Vessels Name Value Ao Ascendin.7 cm Inferior Vena Cava: 1.5 cm Findings: Left Ventricle: Normal size left ventricle. No LV hypertrophy. Normal global systolic LV function. EF is 62 %. No regional wall motion abnormality. Normal diastolic LV function. Right Ventricle: Normal size right ventricle. Normal RV function. Left Atrium: The left atrium is moderately dilated. An agitated saline study was performed and was negative for intracardiac shunting. Right Atrium: The right atrium is normal in size. Mitral Valve: The mitral valve is normal in appearance and function. Mild mitral valve leaflet calcification is present. Mild mitral valve regurgitation is present. No mitral stenosis is present. Aortic Valve: The aortic valve is normal in appearance and function. No aortic valve stenosis is present. There is multiple jets of mild aortic regurgitation present. Tricuspid Valve: The tricuspid valve is normal in appearance and function. Mild tricuspid regurgitation is present. The pulmonary artery pressure is mildly increased. Right ventricular systolic pressure measures 42mmHg. Pulmonic Valve: The pulmonic valve is normal in appearance and function. There is no pulmonic regurgitation seen. Aorta: The aorta is normal. Normal size aortic root measuring 2.6 cm. Normal size ascending aorta measuring 2.7 cm. IVC: The IVC is normal sized. Pericardium: Patient: ANA CRISTINA HEATON Study Date: 07/06/2017 Page 2 of 3 10:15 AM No pericardial effusion. No pleural effusion. (No Signature Object) Patient: ANA CRISTINA HEATON Study Date: 07/06/2017 Page 3 of 3 10:15 AM [id number]
--- NOTE | 2017-07-06 12:59 | ASMTCMCOM ---
CM Note CM Note Notes: 07/06/2017 Case Management Note Discussed pt during interdisciplinary rounds this morning. Per MD there are no case management d/c needs d/t marital status and activity levels prior to admission. Case Management d/c poc: independent with follow up as directed. Case Management to follow. Date Signed: 07/06/2017 12:58 PM Electronically Signed By:Suha Blank RN
--- NOTE | 2017-07-06 14:20 | PDCARCONS ---
Cardiology Consult Reason for Consult: Atypical chest pain and arm pain. Chief Complaint: Chest pain Requesting Physician: Hospitalist, Dr. Kristy Kaufman History of Present Illness: The patient is a 72-year-old female with a history of coronary artery s/p PCI to RCA x2 in 2015. She was admitted with atypical chest quach that radiated down both of her arms. At onset of pain the patient also describes 10 minutes of confusion during the episode. Her pain lasted for about 40 minutes. She took 4 Nitroglycerin and 2 Aspirin and her pain resolved with administration of oxygen when the ambulance arrived. In addition, she states she was very stressed at the onset of her chest pain. She had a visitor to her home who was very rude and refused to leave when she asked the person to go. She declines to give further information and does not which to have the authorities contacted. Nevaeh has experienced similar cardiac symptoms in the past and has been evaluated previously with a recent angiogram in April 2016 that was negative for flow limiting obstruction. History Information - Allergies/Home Medication List Allergies/Adverse Reactions: No Known Allergies Allergy (Verified 07/05/17 23:43) Home Medications: Aspirin EC [Aspirin EC 81 mg (*)] 81 mg PO HS 08/15/16 [Last Taken 07/05/17] Clobetasol 0.05% [Temovate Cream] 1 carolyn TP BID PRN 08/15/16 [Last Taken Unknown] DULoxetine [Cymbalta 30 MG (*)] 30 mg PO DAILY 08/15/16 [Last Taken 07/05/17] DULoxetine [Cymbalta 60 MG (*)] 60 mg PO DAILY 08/15/16 [Last Taken 07/05/17] Diazepam [Valium 5 MG (*)] 5 mg PO TID PRN 08/15/16 [Last Taken Unknown] Ipratropium 0.06% Nasal [Atrovent 0.06% Nasal] 1 sprays EACHNARE BID PRN [Last Taken Unknown] LORazepam [Ativan (*)] 0.5 - 1 mg PO HS PRN 08/15/16 [Last Taken Unknown] Nitroglycerin [Nitrostat 0.4 mg (*)] 0.4 mg SL AD PRN 08/15/16 [Last Taken Unknown] Ondansetron HCl [Zofran] 4 mg PO BID PRN 08/15/16 [Last Taken 07/05/17] PARoxetine HCL [Paxil 10mg (*)] 30 mg PO DAILY 08/15/16 [Last Taken 07/05/17] Progesterone, Micronized [Progesterone] 200 mg PO HS 08/15/16 [Last Taken ] QUEtiapine FUMARATE [Seroquel 25 mg (*)] 25 - 50 mg PO HS PRN 08/15/16 [Last Taken Unknown] buPROPion SR [Wellbutrin 150mg SR (*)] 150 mg PO DAILY 08/15/16 [Last Taken ] fentaNYL [Duragesic 75 MCG Patch (*)] 75 mcg TD Q48H 08/15/16 [Last Taken ] lamoTRIgine [LamICTAL 100 MG (*)] 100 mg PO DAILY 08/15/16 [Last Taken 07/05/17] Levothyroxine [Synthroid 88 mcg (*)] 88 mcg PO DAILY06 08/18/16 [Last Taken ] Herbals/Supplements -Info Only 1 ea PO DAILY 07/06/17 [Last Taken Unknown] Multivitamins [Multivitamin (*)] 1 each PO DAILY 07/06/17 [Last Taken 07/05/17] [place]-3 Fatty Acids [Fish Oil 1000 mg (*)] 1,000 mg PO DAILY 07/06/17 [Last Taken 07/05/17] I have personally reviewed and updated: family history, medical history, social history, surgical history Past Medical History: Coronary artery disease, PCI to RCA x2, Normocytic anemia, Hyperlipidemia, Chronic back pain, Depression, Chronic fatigue. - Past Medical History coronary artery disease - Surgical History Additional surgical history: Hernia repair. - Social History Smoking Status: Former smoker Cardiac History - Cardiac History Past Cardiac History: CAD, PCI Timing/Duration: Minutes Severity: severe Location: substernal Activities at Onset: emotional stress Modifying Factors: improves with: nitroglycerin Associated Symptoms: denies symptoms (She has not had a recurrent chest discomfort since her arrival to the hospital. ) TUTU Risk Evaluation age greater or equal to 65: yes greater or equal to 3 CAD risk factors: yes known CAD(stenosis greater or eqaul to 50%): no ASA use in past 7 days: yes severe angina(greater or equal to 2 episodes in 24hrs): no EKG ST changes greater or equal to 0.5mm: no positive cardiac marker: no Total Score: 3 TUTU Score: 13.2% risk Age in Years: 65-74 Sex: Female Congestive Heart Failure History: No Hypertension History: Yes Stroke/TIA/Thromboembolism History: No Physical Exam Physical Exam: Temp Pulse Resp BP Pulse Ox 36.7 C 71 17 145/67 H 91 L 07/06/17 12:10 07/06/17 12:10 07/06/17 12:10 07/06/17 12:10 07/06/17 12:10 O2 (L/minute) 2 Constitutional: no apparent distress Eyes: PERRL Ears, Nose, Mouth, Throat: moist mucous membranes Cardiovascular: regular rate and rhythym Peripheral Pulses: 2+: carotid (R), carotid (L), femoral (R), femoral (L), dorsalis-pedis (R), dorsalis-pedis (L) Respiratory: no respiratory distress Gastrointestinal: normoactive bowel sounds Skin: warm, normal color Musculoskeletal: no muscle tenderness Neurologic: AAOx3 Psychiatric: interacting appropriately Lab and Imaging 07/06/17 05:40 07/06/17 05:40 WBC 6.25 10^3/uL (3.80-9.50) 07/06/17 05:40 RBC 3.71 10^6/uL (4.18-5.33) L 07/06/17 05:40 Hgb 11.8 g/dL (12.6-16.3) L 07/06/17 05:40 Hct 36.6 % (38.0-47.0) L 07/06/17 05:40 MCV 98.7 fL (81.5-99.8) 07/06/17 05:40 MCH 31.8 pg (27.9-34.1) 07/06/17 05:40 MCHC 32.2 g/dL (32.4-36.7) L 07/06/17 05:40 RDW 14.2 % (11.5-15.2) 07/06/17 05:40 Plt Count 280 10^3/uL (150-400) 07/06/17 05:40 MPV 8.8 fL (8.7-11.7) 07/06/17 05:40 Neut % (Auto) 44.8 % (39.3-74.2) 07/06/17 05:40 Lymph % (Auto) 38.6 % (15.0-45.0) 07/06/17 05:40 [place] % (Auto) 11.4 % (4.5-13.0) 07/06/17 05:40 Eos % (Auto) 4.5 % (0.6-7.6) 07/06/17 05:40 Baso % (Auto) 0.5 % (0.3-1.7) 07/06/17 05:40 Nucleat RBC Rel Count 0.0 % (0.0-0.2) 07/06/17 05:40 Absolute Neuts (auto) 2.81 10^3/uL (1.70-6.50) 07/06/17 05:40 Absolute Lymphs (auto) 2.41 10^3/uL (1.00-3.00) 07/06/17 05:40 Absolute Monos (auto) 0.71 10^3/uL (0.30-0.80) 07/06/17 05:40 Absolute Eos (auto) 0.28 10^3/uL (0.03-0.40) 07/06/17 05:40 Absolute Basos (auto) 0.03 10^3/uL (0.02-0.10) 07/06/17 05:40 Absolute Nucleated RBC 0.00 10^3/uL (0-0.01) 07/06/17 05:40 Immature Gran % 0.2 % (0.0-1.1) 07/06/17 05:40 Immature Gran # 0.01 10^3/uL (0.00-0.10) 07/06/17 05:40 PT 13.3 SEC (12.0-15.0) 07/06/17 00:40 INR 0.99 (0.83-1.16) 07/06/17 00:40 APTT 32.9 SEC (23.0-38.0) 07/06/17 00:40 D-Dimer 0.35 ug/mLFEU (0.00-0.50) 07/06/17 00:40 Sodium 147 mEq/L (135-145) H 07/06/17 05:40 Potassium 4.2 mEq/L (3.5-5.2) 07/06/17 05:40 Chloride 113 mEq/L (97-110) H 07/06/17 05:40 Carbon Dioxide 24 mEq/l (22-31) 07/06/17 05:40 Anion Gap 10 mEq/L (8-16) 07/06/17 05:40 BUN 26 mg/dL (7-23) H 07/06/17 05:40 Creatinine 0.7 mg/dL (0.6-1.0) 07/06/17 05:40 Estimated GFR > 60 07/06/17 05:40 Glucose 85 mg/dL (70-100) 07/06/17 05:40 Calcium 9.2 mg/dL (8.5-10.4) 07/06/17 05:40 Phosphorus 4.2 mg/dL (2.5-4.5) 07/06/17 05:40 Magnesium 2.1 mg/dL (1.6-2.3) 07/06/17 05:40 Ferritin 15.2 ng/mL (6.2-264.0) 07/06/17 05:40 Total Bilirubin 0.2 mg/dL (0.1-1.4) 07/06/17 00:40 Conjugated Bilirubin 0.2 mg/dL (0.0-0.5) 07/06/17 00:40 Unconjugated Bilirubin 0.0 mg/dL (0.0-1.1) 07/06/17 00:40 AST 17 IU/L (14-46) 07/06/17 00:40 ALT 23 IU/L (9-52) 07/06/17 00:40 Alkaline Phosphatase 61 IU/L (38-126) 07/06/17 00:40 Creatine Kinase 66 IU/L (0-156) 07/06/17 00:40 CK-MB (CK-2) Fraction 1.44 ng/mL (0.00-4.55) 07/06/17 00:40 Troponin I < 0.012 ng/mL (0.000-0.034) 07/06/17 05:40 NT-Pro-B Natriuret Pep 149 pg/mL (0-125) H 07/06/17 00:40 Total Protein 6.3 g/dL (6.3-8.2) 07/06/17 00:40 Albumin 3.5 g/dL (3.5-5.0) 07/06/17 00:40 Lipase 72 IU/L (23-300) 07/06/17 00:40 Vitamin B12 902 pg/mL (239-931) 07/06/17 05:40 Visualized and Interpreted Chest x-ray results: Yes Chest X-ray Interpretation: normal, other (Negative for acute cardiopulmonary disease. ) Visualized and Interpreted imaging results: Yes Interpretation: Carotid doppler: There was no evidence of hemodynamically significant ICA stenosis. No significant change compared to her previous carotid doppler performed 03/13/16. EKG Interpretation: Positive for: normal sinsus rhythm EKG additional interpertation: no acute ST T wave abnormalities to suggest ischemia. Telemetry: I reviewed the raw data on the rhythm strips. The patient has been in normal sinus rhythm predominately with occasional PVC's. No significant tachy or be dysrhythmia Echocardiogram: Normal global systolic LV function. EF of 62%. Mild MR and mild TR. This was a normal study. No evidence of segmental wall motion abnormalities. A/P Assessment: Nevaeh was admitted for atypical chest pain that was sharp and sudden in nature and unrelieved by Nitroglycerin. The pain did radiate to her upper extremities. She has a history of coronary artery disease s/p stenting to the RCA x2 in 2015. She additionally had an angiogram April 2016 that was negative for flow limiting obstruction. While in the ED, the patient had normal troponin and negative D-dimer. Her chest x-ray was negative for acute cardiopulmonary disease. She was admitted with continued cardiac monitoring. She has remained in normal sinus rhythm. She had an echocardiogram performed that showed normal global systolic LV function. EF of 62%. Mild MR and mild TR. This was a normal study. The carotid Doppler showed no evidence of hemodynamically significant ICA stenosis. No significant change compared to her previous carotid Doppler performed 03/13/16. The patient appears to be a candidate for conservative management and early discharge. I will arrange for an outpatient Lexiscan nuclear stress as she is scheduled for a knee surgery later this month. Plan: I think it is safe for the patient to be discharged home. She had a normal cardiac workup and is no longer symptomatic. Given how recently she had a normal angiogram, I do not recommend further in patient cardiac testing. I have discussed her case with the hospitalist, Dr. Kaufman, and she agrees with the plan to discharge the patient home. I would like to see the patient in clinic for follow up. We will schedule her to have an outpatient Lexiscan nuclear stress test. She will need that prior to scheduled knee surgery. The patient knows to present to the emergency department immediately if she experiences chest pain/ pressure/tightness, syncope, near-syncope, or other cardiac symptoms of concern prior to her next visit.
--- NOTE | 2017-07-06 15:19 | GDS ---
[f rep st] DISCHARGE SUMMARY DIAGNOSIS: 1. Chest pain, atypical, resolved. 2. Neurologic event. I suspect is anxiety, evaluated for TIA with negative carotid Doppler and negative echocardiogram and negative telemetry. 3. Coronary artery disease, followed by Dr. Joseph. 4. Bipolar disease, followed by therapist on multiple medications. 5. Myofascial pain syndrome. 6. Dyslipidemia. 7. Fatigue. CONSULTATIONS: Cardiology, Dr. Rubén Adkins. PROCEDURES DONE: 1. Carotid Doppler, negative for obstructing disease. 2. Echocardiogram, unremarkable. HOSPITAL COURSE: The patient is a 72-year-old with a history of coronary artery disease status post RCA stent, who comes in with an atypical story for chest pain. This is her usual anginal pain for which she has been followed by Dr. Joseph, she came into the emergency department because it lasted 20 minutes longer than usual and toward the end of the episode started developing confusion and difficulty thinking and dialing 911. All the symptoms resolved when the hospital nursing assistant arrived. She was admitted to the hospital. She was ruled out with serial enzymes. Echocardiogram was unremarkable. 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 At this time, she is stable to go home. She will follow up with [facility] as an outpatient for a Lexiscan stress test to be done prior to an upcoming surgery. Regarding her neurologic symptoms, these are brief in nature less than 10 minutes and have completely resolved. I do not think it is worth getting an MRI scan of her head since she is asymptomatic at this time and her TIA evaluation including telemetry monitoring, echocardiogram and carotid Doppler study were all unremarkable. Again, I suspect this may be related to stress and her anxiety given her history. At the time of discharge, she feels back to baseline and wants to go home with followup. DISCHARGE MEDICATIONS: Please see discharge medication list. There were no changes. FOLLOW UP INSTRUCTIONS: [facility] will schedule followup Lexiscan stress test for her to be done preoperatively. She can follow up with Dr. Murguia as scheduled. /[id number]/MODL MTDD
--- NOTE | 2017-07-06 16:28 | ASMTLACE ---
LACE Length of stay for Answers: Less than 1 day current admission Acuity / Level of Answers: No Care: Did the patient have an inpatient admission? Comorbidities - select Answers: Coronary Artery Disease all that apply # of Emergency department Answers: 1-2 visits in the last 6 months Score: 3 Date Signed: 07/06/2017 04:27 PM Electronically Signed By:Suha Blank RN
[2017-07-06] MEDS ORDERED: PROGESTERONE,MICR 100 MG CAP PO SCH (21:00)
[2017-07-07] MEDS ORDERED: LEVOTHYROXINE 88 MCG TAB PO SCH (06:00)
--- NOTE | 2017-07-08 13:42 | ASDISCHSUM ---
Discharge Information Plan Status:Home with No Needs Medically Cleared to Leave:07/06/2017 Discharge Date:07/06/2017 03:33 PM CM D/C Disposition:Home, Routine, Self-Care ADT D/C Disposition:Home, Routine, Self-Care Projected Discharge Date:07/06/2017 03:33 PM Transportation at D/C:Family Discharge Delay Reason: Follow-Up Date:07/06/2017 03:33 PM Discharge Slot: Final Diagnosis: Placement Information Patient Contact Information Contact Name:EMERY Relationship: Address:[address] [place] [address] City:[place] Alternate Phone: State/Zip Code:[place] [address] Email: Financial Information Financial Class:Medicare Primary Plan Desc:MEDICARE OUTPATIENT Primary Plan Number:[id number] Secondary Plan Desc:[employer] Secondary Plan Number:[id number] Assessment Information LACE LACE Length of stay for Answers: Less than 1 day current admission Acuity / Level of Answers: No Care: Did the patient have an inpatient admission? Comorbidities - select Answers: Coronary Artery Disease all that apply # of Emergency department Answers: 1-2 visits in the last 6 months Score: 3 Date Signed: 07/06/2017 04:27 PM Electronically Signed By:Suha Blank RN [facility] CM Progress Note CM Note CM Note Notes: 07/06/2017 Case Management Note Discussed pt during interdisciplinary rounds this morning. Per MD there are no case management d/c needs d/t marital status and activity levels prior to admission. Case Management d/c poc: independent with follow up as directed. Case Management to follow. Date Signed: 07/06/2017 12:58 PM Electronically Signed By:Suha Blank RN Intervention Information Intervention Type:*DAI-Signed Date of Service:07/06/2017 09:20 AM Patient Type:Observation Staff Member:Alejandra Harris Hours: Discipline: Severity: Comment:
== END 2017-07-06 15:33 | disposition home or self-care (01) ==
LOC: EDUNIT# → F2W 07-06 02:25
PROVIDERS: ADMIT Student in an Organized Health Care Education/Training Program; ATTEND Student in an Organized Health Care Education/Training Program
DX: R07.9 Chest pain, unspecified (principal); R29.818 Other symptoms and signs involving the nervous system; I25.10 Atherosclerotic heart disease of native coronary artery without angina pectoris; F31.9 Bipolar disorder, unspecified; M79.1 Myalgia; E78.5 Hyperlipidemia, unspecified; R53.83 Other fatigue
CPT/HCPCS: 71045; 93005; 93306; 93880; G0378; J1650; 82607-90

== ENCOUNTER → 2017-07-21 | Outpatient (CLI) | payer OTHER | LOC: BHFA 09:00 | PROVIDERS: ATTEND Internal Medicine Cardiovascular Disease | DX: R07.9 Chest pain, unspecified (principal) | CPT/HCPCS: 78452; 93017; A9500 ==

== ENCOUNTER → 2017-07-31 | Outpatient (CLI) | payer OTHER | LOC: FIMAGING 15:19 | PROVIDERS: ATTEND Physician Assistant | DX: M79.661 Pain in right lower leg (principal); R93.6 Abnormal findings on diagnostic imaging of limbs ==

== ENCOUNTER → 2017-11-03 | Outpatient (CLI) | payer OTHER | LOC: BHFA 11:45 | PROVIDERS: ATTEND Internal Medicine Interventional Cardiology | DX: I25.10 Atherosclerotic heart disease of native coronary artery without angina pectoris (principal); E78.5 Hyperlipidemia, unspecified; W19.XXXA Unspecified fall, initial encounter; Z95.5 Presence of coronary angioplasty implant and graft ==

== ENCOUNTER 2017-11-05 13:58 | Emergency (ER) | payer OTHER ==
--- NOTE | 2017-11-05 14:36 | EDPHY ---
HPI/HX/ROS/PE/MDM Narrative: CHIEF COMPLAINT: Headache and dizziness after a fall HPI: This patient is a 72 year old female who presents with headache and dizziness secondary to a mechanical fall six days ago. She stumbles on a step at her doorway and fell, striking the right side of her head on concrete. She denies any loss of consciousness. Following the event, she had headache, nausea, and imbalance. She did not seek emergency care at that time. She has had difficulty with memory in the last few days and feels "increasingly disoriented". Yesterday , she vomited several times. She spoke with her PCP, Dr. Murguia, who referred her to neurology, and to her roaster supervisor, Dr. Joseph, who recommended the same. She was unable to make a rapid appointment with a neurologist and was then referred to the emergency department. Today, she continues experience headache, disorientation, and nausea. She is not anticoagulated, but does take a daily ASA 81mg. No numbness or weakness in her extremities, no slurred speech , facial droop. No fever, diarrhea, urinary complaints, or other associated symptoms. REVIEW OF SYSTEMS: A comprehensive 10 system review of systems is otherwise negative aside from elements mentioned in the history of present illness and medical decision making. PMH: CAD s/p stent placement x 2. Chronic pain from remote history of polio. Abdominal surgery for bowel adhesions. Orthopedic surgery. 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 SOCIAL HISTORY: . Employed. Lives in [place]. PHYSICAL EXAM: General:Patient is alert, in no acute distress. ENT:Eyes are normal to inspection. ENT inspection normal. Neck: Normal inspection. Full range of motion. Respiratory:No respiratory distress. Breath sounds normal bilaterally. Cardiovascular: Regular rate and rhythm. Strong peripheral pulses. Normal cap refill. Abdomen:The abdomen is nontender to palpation. There are no peritoneal signs. There are normal bowel sounds. Back: Normal to inspection. No tenderness to palpation. Skin: Normal color. No rash. Warm and dry. Extremities: Normal appearance. Full range of motion. Neuro: Oriented x3. Normal motor function. Normal sensory function. ED Course: 72 yo female presents with headache, dizziness, and memory difficulties secondary to a fall and head injury six days ago. She is neurologically intact on exam. No obvious signs of trauma. Plan for CT head to r/o acute intracranial processes. 15:[address] Jhaveri, radiologist. CT head negative for acute processes. Reassessed patient. Discussed imaging results. Symptoms likely consistent with concussion. Plan to discharge home in good condition. Follow up and return precautions discussed. The patient and her are comfortable with this plan. - Data Points Imaging: Discussed imaging studies w/ clinical sales consultant Radiologist General Time Seen by Provider: 11/05/17 14:28 Initial Vital Signs: Initial Vital Signs Temperature (C) 36.9 C 11/05/17 14:05 Heart Rate 80 11/05/17 14:05 Respiratory Rate 16 11/05/17 14:05 Blood Pressure 141/106 H 11/05/17 14:05 O2 Sat (%) 94 11/05/17 14:05 O2 Delivery Mode Room Air Allergies/Adverse Reactions: No Known Allergies Allergy (Verified 07/05/17 23:43) Home Medications: Medication Instructions Recorded Aspirin EC [Aspirin EC 81 mg (*)] 81 mg PO HS 08/15/16 Clobetasol 0.05% [Temovate Cream] 1 carolyn TP BID PRN 08/15/16 DULoxetine [Cymbalta 30 MG (*)] 30 mg PO DAILY 08/15/16 DULoxetine [Cymbalta 60 MG (*)] 60 mg PO DAILY 08/15/16 Diazepam [Valium 5 MG (*)] 5 mg PO TID PRN 08/15/16 Ipratropium 0.06% Nasal [Atrovent 1 sprays EACHNARE BID PRN 08/15/16 0.06% Nasal] LORazepam [Ativan (*)] 0.5 - 1 mg PO HS PRN 08/15/16 Nitroglycerin [Nitrostat 0.4 mg 0.4 mg SL AD PRN 08/15/16 (*)] Ondansetron HCl [Zofran] 4 mg PO BID PRN 08/15/16 PARoxetine HCL [Paxil 10mg (*)] 30 mg PO DAILY 08/15/16 Progesterone, Micronized 200 mg PO HS 08/15/16 [Progesterone] QUEtiapine FUMARATE [Seroquel 25 25 - 50 mg PO HS PRN 08/15/16 mg (*)] buPROPion SR [Wellbutrin 150mg SR 150 mg PO DAILY 08/15/16 (*)] fentaNYL [Duragesic 75 MCG Patch 75 mcg TD Q48H 08/15/16 (*)] lamoTRIgine [LamICTAL 100 MG (*)] 100 mg PO DAILY 08/15/16 Levothyroxine [Synthroid 88 mcg 88 mcg PO DAILY06 08/18/16 (*)] Herbals/Supplements -Info Only 1 ea PO DAILY 07/06/17 Multivitamins [Multivitamin (*)] 1 each PO DAILY 07/06/17 [place]-3 Fatty Acids [Fish Oil 1000 1,000 mg PO DAILY 07/06/17 mg (*)] Departure - Departure Disposition: Home, Routine, Self-Care Clinical Impression: Concussion Qualifiers: Encounter type: initial encounter Loss of consciousness presence/duration: without LOC Qualified Code(s): S06.0X0A - Concussion without loss of consciousness, initial encounter Condition: Good Instructions: Concussion (ED) Additional Instructions: 1. Follow-up with your primary care doctor this week. We have referred you to a concussion specialist, please follow up with her as well for continued management of your symptoms. We have also referred you to our neurologist zoning engineer as requested. 2. Brain rest - try to avoid TV, video games, cell phones, or reading while symptoms persist. You may reintroduce activities as tolerated. 3. Physical rest - avoid activities that could result in further head injury or that require prolonged attention until your symptoms completely resolve. 4. You may take Tylenol or Ibuprofen as directed below as needed for pain. 5. Return to the Emergency Department for severe headache, vomiting, vision changes, confusion, fever or other concerns. Adult Pain & Fever Control: We recommend Acetaminophen (Tylenol) and Ibuprofen (Motrin,Advil) for pain and fever control. When fever is high or pain severe, both drugs can be used at the same time, but at different intervals. Please note the time differences. Your dose is: Acetaminophen 650mg every 4 to 6 hours Ibuprofen 400mg every 6-8 hours with food Note: do not take Acetaminophen with Hydrocodone (Vicodin, Lortab) or Oxycodone (Percocet). These medications also contain Acetaminophen. No more than 3000mg of Acetaminophen should be taken in 24 hours (for an adult). Referrals: Ryan Murguia MD [Primary Care Provider] - As per Instructions Anastasiya Worthy MD [Medical Doctor] - As per Instructions Rios Tucker DO [Medical Doctor] - As per Instructions Report Scribed for: Buddy Brock Report Scribed by: Lora Archuleta Date of Report: 11/05/17 Time of Report: 15:08 Physician Review and Approval Statement: Portions of this note were transcribed by an ED scribe. I personally performed the history, physical exam, and medical decision making; and confirm the accuracy of the information in the transcribed note.
[2017-11-05 15:21] VITALS: BP 125/74
== END 2017-11-05 15:20 | disposition home or self-care (01) ==
DX: S06.0X0A Concussion without loss of consciousness, initial encounter (principal); W10.9XXA Fall (on) (from) unspecified stairs and steps, initial encounter; Y92.018 Other place in single-family (private) house as the place of occurrence of the external cause

== ENCOUNTER → 2018-02-08 | Outpatient (CLI) | payer OTHER | LOC: FIMAGING 15:25 | PROVIDERS: ATTEND Physical Medicine & Rehabilitation | DX: S06.0X0D Concussion without loss of consciousness, subsequent encounter (principal); S06.5X0S Traumatic subdural hemorrhage without loss of consciousness, sequela; G31.9 Degenerative disease of nervous system, unspecified ==

== ENCOUNTER → 2018-03-06 | Outpatient (CLI) | payer OTHER | LOC: FIMAGING 10:59 | PROVIDERS: ATTEND Physician Assistant | DX: S83.281A Other tear of lateral meniscus, current injury, right knee, initial encounter (principal); M22.41 Chondromalacia patellae, right knee ==

== ENCOUNTER 2018-03-23 07:21 | Day surgery (SDC) | payer OTHER ==
[2018-03-23] MEDS ORDERED: NS 1,000 ML IV ONE (07:24)
[2018-03-23] MEDS ORDERED: DIAZEPAM 5 MG TAB PO ONE (07:24)
[2018-03-23] MEDS ORDERED: FAMOTIDINE 20 MG TAB PO ONE (07:24)
[2018-03-23] MEDS ORDERED: ASPIRIN EC 325 MG TAB PO ONE (07:24)
[2018-03-23] MEDS ORDERED: diphenhydrAMINE 25 MG CAP PO ONE (07:24)
[2018-03-23 08:10] LABS: PLATELET COUNT 254 10^3/uL (150-400)
[2018-03-23 08:19] LABS: INR 0.96 (0.83-1.16)
--- NOTE | 2018-03-23 09:09 | PDHPUP ---
History & Physical Update H&P update statement: This history and physical update is based on an assessment of the patient which was completed after admission or registration (within 24 hours), but prior to the surgery/procedure. H&P update: H&P reviewed & patient examined, no change in patient's condition since H&P completed
--- NOTE | 2018-03-23 09:10 | PDPROPOC ---
Sedation Plan of Care Sedation Plan of Care: vital signs stable, mental status noted, patient educated of risks, benefits, alternatives, patient can tolerate sedation ASA Classification: ASA 1 Planned drugs: fentanyl, midazolam Mallampati Score: Class 1 Mallampati Reference Image:
[2018-03-23] MEDS ORDERED: VERAPAMIL 5 MG/2 ML VIAL ONE (09:11)
[2018-03-23] MEDS ORDERED: MIDAZOLAM 2 MG/2 ML VIAL ONE (09:11)
[2018-03-23] MEDS ORDERED: HEPARIN 10,000 UNIT/10 ML MDV (1,000 UNIT/ML) ONE (09:11)
[2018-03-23] MEDS ORDERED: fentaNYL 100 MCG/2 ML INJ ONE (09:11)
[2018-03-23] MEDS ORDERED: LIDOCAINE 1% 300 MG/30 ML SDV ONE (09:11)
[2018-03-23] MEDS ORDERED: IOPAMIDOL (ISOVUE 370) 100 ML BTL IV ONE (09:12)
--- NOTE | 2018-03-23 09:53 | PDDXCAT ---
Diagnostic Cath Note - . Date: 03/23/18 Director Channel: Jake Indication: other (Calss 3 CHF symptoms with hx. of multivessel stent.) - Procedure Access: right wrist Procedure: left heart catheterization, coronary angiography, left ventriculogram - Materials Left Heart Cath size: 5F Left Heart Cath materials: pigtail, other (AL1 for anterior take off of the RCA) - Findings-Left Heart Catheterization LM: unobstructed LAD: unobstructed LCX: Codominat: Unobstructed RCA: Co:Dominant. Stents widely patent. unobstructed. EDP: 18 mmhg LVEF: 65 Wall motion: normal Complications: none Estimated blood loss: <50ml Closure method: TR Band Assessment: Widely patent site of previous stents. No new obstructive disease. Normal LVEF and filling pressures. Plan: Medical therapy. Patient Problems: Problems Problem Status Onset Dyspnea Acute Chest pain Acute
--- NOTE | 2018-03-23 16:40 | CPEKG ---
Test Reason : OPEN Blood Pressure : / mmHG Vent. Rate : 076 BPM Atrial Rate : 077 BPM P-R Int : 166 ms QRS Dur : 072 ms QT Int : 391 ms P-R-T Axes : 070 027 018 degrees QTc Int : 440 ms Sinus rhythm Confirmed by Gabriel Jay ([id number]) on 03/23/2018 4:40:12 PM Referred By: BRAIN MOORE Confirmed By:Gabriel Jay
== END 2018-03-23 12:21 | disposition home or self-care (01) ==
LOC: FCATH 07:21
PROVIDERS: ATTEND Internal Medicine Interventional Cardiology
DX: R07.9 Chest pain, unspecified (principal); I25.10 Atherosclerotic heart disease of native coronary artery without angina pectoris; I50.32 Chronic diastolic (congestive) heart failure; E78.5 Hyperlipidemia, unspecified; F32.9 Major depressive disorder, single episode, unspecified; J45.30 Mild persistent asthma, uncomplicated; Z95.5 Presence of coronary angioplasty implant and graft; Z91.81 History of falling; Z87.820 Personal history of traumatic brain injury
CPT/HCPCS: J1644; J2250; J3010; Q9967

== ENCOUNTER → 2018-05-15 | Outpatient (CLI) | payer OTHER | LOC: FIMAGING 13:24 | PROVIDERS: ATTEND Internal Medicine | DX: M18.0 Bilateral primary osteoarthritis of first carpometacarpal joints (principal); M19.042 Primary osteoarthritis, left hand; M19.041 Primary osteoarthritis, right hand ==